=== PATIENT | male | born 1960 | race Caucasian/White ===

== ENCOUNTER 2018-04-12 11:52 | Inpatient (IN) ==
[2018-04-12] MEDS ORDERED: MethylPREDNISolone Sod Succinate Inj 125 MG/2 ML Vial IV.PUSH ONE (12:05)
[2018-04-12] MEDS ORDERED: Famotidine PF Inj 20 MG/2 ML Vial IV.PUSH ONE (12:05)
[2018-04-12] MEDS ORDERED: Sod Chloride 0.9% Inj 1,000 ML IV.SIG ONE (12:15)
[2018-04-12] MEDS ORDERED: Sod Chloride 0.9% Inj 1,000 ML IV.CONT SCH (12:15)
[2018-04-12 12:33] LABS: Mean Corpuscular HGB Conc 32.9 % (32.0-36.0); Mean Corpuscular Hemoglobin 35.7 pg (27.0-34.0); Mean Corpuscular Volume 108.6 fL (80.0-100.0); Mean Platelet Volume 7.2 fL (7.0-11.0); Platelet Count 46 th/mm3 (150-450); Red Blood Count 1.88 mil/mm3 (4.50-5.90); Red Cell Distribution Width 27.3 % (11.6-17.2); White Blood Count 5.8 th/mm3 (4.0-11.0)
[2018-04-12 12:34] LABS: ABG Base Excess -5.8 mmol/L (-2-2); ABG PCO2 31 mmHg (38-42); ABG PO2 70 mmHg (61-120)
[2018-04-12 12:41] LABS: Activated Partial Thrombo Time 31.6 sec (24.3-30.1); Prothrombin Time 10.2 sec (9.8-11.6)
[2018-04-12 12:44] LABS: Hematocrit 20.4 % (39.0-51.0); Hemoglobin 6.7 gm/dL (13.0-17.0)
[2018-04-12] MEDS ORDERED: Pantoprazole Inj 40 MG Vial IV.PUSH ONE (12:51)
[2018-04-12 13:00] LABS: Albumin 2.7 g/dL (3.4-5.0); Anion Gap 18 meq/L (5-15); Aspartate Aminotransferase 63 U/L (15-37); Blood Urea Nitrogen 27 mg/dL (7-18); Calcium 8.2 mg/dL (8.5-10.1); Carbon Dioxide 18.6 meq/L (21.0-32.0); Chloride 103 meq/L (98-107); Glomerular Filtration Rate 59 mL/min (>89); Glucose,Random 66 mg/dL (74-106); Potassium 4.8 meq/L (3.5-5.1); Sodium 140 meq/L (136-145)
[2018-04-12] MEDS ORDERED: Sodium Chlor 0.9% Inj 250 ML IV.SIG SCH (13:00)
--- NOTE | 2018-04-12 13:00 | XR ---
EXAM DATE: 04/12/2018 12:54 PM EDT AGE/SEX: 57 years / Male INDICATIONS: Short of breath and fever. Patient was receiving chemotherapy today and was transporte d to the emergency room with cold sweats. CLINICAL DATA: This is the patient's initial encounter. Patient reports that signs and symptoms have been present for 1 day and indicates a pain score of 0/10. MEDICAL/SURGICAL HISTORY: . Diabetes. Lymphoma. . Infusaport. COMPARISON: [facility] [place], 03[place]. . FINDINGS: There is a right-sided Vfrhie-l-Ymht in place which appears to be in good position. There is some mil d platelike atelectasis in the left lung base. No evidence of pneumothorax. Otherwise, the lungs are grossly clear. No definite pleural effusions or pulmonary edema is demonstrated. The heart size is wi thin normal limits. The bony structures appear to be stable. CONCLUSION: 1. New mild platelike atelectasis in the left lung base. 2. Otherwise, the rest the lungs are grossly clear. Electronically signed by: Grover Ventura MD 04/12/2018 12:58 PM EDT
[2018-04-12 13:03] LABS: Alanine Aminotransferase 14 U/L (12-78); Alkaline Phosphatase 136 U/L (45-117); Total Protein 5.5 g/dL (6.4-8.2)
--- NOTE | 2018-04-12 13:36 | ED ---
HPI General Chief complaint: Allergic Reaction Stated complaint: Medical/Evac Time Seen by Provider: 04/12/18 12:02 Source: patient, family and EMS Mode of arrival: EMS Limitations: no limitations History of Present Illness HPI narrative: 57 yo male here via [facility] for evaluation of allergic reaction. patient has a significant history of mantle cell lymphoma diagnosed 3 weeks ago at this hospital. Patient follow-up with Dr. Shell and has been following up with him for treatment of his cancer. Apparently patient had blood work done and an evaluation by his oncologist yesterday that showed that his hemoglobin was low. He was given a blood transfusion yesterday. Today he was due for the first dose of his chemotherapy rituximab transfusion and was given Benadryl and 30 minutes into the medication dose he started developing a reaction to the medication. He started becoming hypotensive and tachycardic as well as hypoxic. He started developing a rash. Apparently he also started complaining of a lot of itchiness. Dr. Shell himself evaluated the patient and the oncology center and started patient on prednisone as well as Benadryl. IV fluids were given. Patient was sent here by [facility] for evaluation of his allergic reaction. Patient currently complains of basically feeling short of breath. He does complain of itchiness and rash. He also complains of lower leg edema and testicular swelling. Patient cannot really tell me how long this is been going on. Patient denies any nausea or vomiting. He denies any bowel movement issues alert and having some darker stools. No urinary symptoms. He denies any history of asthma or COPD. He states that he is having difficulty taking deep breaths. Related Data Allergies Allergy/AdvReac Type Severity Reaction Status Date / Time indomethacin Allergy Unknown Verified 04/01/18 10:54 Review of Systems ROS Unobtainable All other systems reviewed negative except as stated in HPI [facility] Medical History Medical History Diabetes (Acute) Lymphoma (Acute) Social History Social History Substance History: Active Abuse Smoking Status: Current every day smoker Tobacco Type: Cigarettes How Often Do You Have a Drink Containing Alcohol: Monthly or less Recent Travel in [place] within the Last 8 Weeks: No Recent Out of Country Travel within the Last 8 Weeks: No Substance Abuse Detail Marijuana: Substance Use Status: Active Route Used Substance Abuse: Inhalation Immunization History Tetanus Immunization: Unsure Exam Narrative Exam Narrative: GENERAL: Well-groomed SKIN: Focused skin assessment warm/dry. Patient has icterus and jaundice noted on the skin as well as on the eyes. HEAD: Atraumatic. Normocephalic. EYES: Pupils equal and round. No scleral icterus. No injection or drainage. ENT: No nasal bleeding or discharge. Mucous membranes pink and moist. NECK: Trachea midline. No JVD. CARDIOVASCULAR: Regular rate and rhythm. No murmur appreciated. RESPIRATORY: No accessory muscle use. Clear to auscultation. Breath sounds equal bilaterally. GASTROINTESTINAL: Abdomen soft, non-tender, nondistended. Hepatic and splenic margins not palpable. Genital exam done with female nurse present. Patient does have soft tissue swelling of the testicles but no sign of pain or deformity other than soft tissue swelling. MUSCULOSKELETAL: No obvious deformities. No clubbing. No cyanosis. No edema. Full range of motion of the upper and lower extremities bilaterally. Patient does have lower leg edema which per patient is new. 1+ pitting edema. 2+ pulses bilaterally. NEUROLOGICAL: Awake and alert. No obvious cranial nerve deficits. Motor grossly within normal limits. Normal speech. PSYCHIATRIC: Appropriate mood and affect; insight and judgment normal. Procedures Hemaprompt Stool Procedural Steps Taken: specimen placed in appropriate test area, developer placed on specimen and control areas and controls appropriately positive and negative Hemaprompt Stool Result: negative Course Initial Documented Vital Signs Temperature 98.5 F 04/12/18 12:00 Pulse Rate 118 H 04/12/18 12:00 Respiratory Rate 28 H 04/12/18 12:00 Blood Pressure 109/56 L 04/12/18 12:00 Pulse Oximetry 91 L 04/12/18 12:00 Last Documented Vital Signs Temperature 98.5 F 04/12/18 12:00 Pulse Rate 118 H 04/12/18 12:00 Respiratory Rate 28 H 04/12/18 12:00 Blood Pressure 109/56 L 04/12/18 12:00 Pulse Oximetry 91 L 04/12/18 12:00 Medical Decision Making LITA Attestation LITA supervised visit: Yes Attestation: I, Dr. Garcia, have reviewed the advance practice practitioner's documentation and am in agreement, met with the patient face to face, made the diagnosis, and the medical decision making was done by me. *My assessment and Findings: Patient seen and evaluated with PA, please see PA notes for further details. Here because of increased shortness of breath, tachycardia, hypoxia, feeling weak. He has history of hematological cancer, has had recent transfusion, and has just been started on his new chemotherapy. Lab work is showing significant anemia which I suspect is causing much of his symptoms. Transfusion has been ordered for the patient. He has had dark stools but no signs of GI bleed at this time. Planning to admit for further treatment. MDM Narrative Medical decision making narrative: 57-year-old male the presents to the ED for evaluation of the reaction. Patient was properly examined and was found to have signs and symptoms consistent appears to be acute allergic reaction. Labs and imaging were ordered. Patient was slightly hypoxic and tachycardic on exam. Did review the patient's medical records and he was very anemic yesterday. Apparently he had transfusion yesterday. Will check his blood. He also complained of some dark stools. Hemoccult was done by me and was negative for blood. My attending Dr. Sy was made aware of findings and evaluated the patient herself. Patient was started on anaphylaxis medications as well as fluids. Patient was put on a nonrebreather with improvement of shortness of breath and oxygenation. I was able to speak with Dr. Shell over the phone who provided information the patient was given medications in his office before being sent here. Per Dr. Shell he wanted the patient admitted for further evaluation and stabilization. Per my conversation with him he believes that basically patient may be having more of a reaction because he was already week before having the first dose of the chemotherapy. Patient does appear to have significant anemia of unclear etiology. Hemoccult again was done here was negative. Blood was ordered. Case discussed with the [facility] doctor who agrees to admission to his service. Differential Diagnosis Differential Diagnosis: allergic reaction versus anaphylaxis versus symptomatic anemia versus GI bleed versus side effect of medication Medical Records Medical records reviewed: Yes I reviewed the patient's medical records. Lab Data Lab results reviewed: Yes I reviewed the patient's lab results. Lab results narrative: Coags show INR of 1.0. Result diagrams: 04/12/18 12:15 04/12/18 12:15 Lab Results 04/11/18 04/12/18 04/12/18 Range/Units 11:25 12:15 12:15 CBC w Diff Manual diff required WBC 5.8 (4.0-11.0) th/mm3 RBC 1.88 L (4.50-5.90) mil/mm3 Hgb 6.7 L* (13.0-17.0) gm/dL Hct 20.4 L* (39.0-51.0) % MCV 108.6 H (80.0-100.0) fL MCH 35.7 H (27.0-34.0) pg MCHC 32.9 (32.0-36.0) % RDW 27.3 H (11.6-17.2) % Plt Count 46 L D (150-450) th/mm3 MPV 7.2 (7.0-11.0) fL Prelim Diff (Auto) Slide review pending WBC Differential Manual diff final Seg Neuts % (Manual) 7 L (16-70) % Band Neuts % (Manual) 7 H (0-6) % Lymphocytes % (Manual) 85 H (9-44) % Eosinophils % (Manual) 1 (0-4) % Abs Neuts (Manual) 0.8 L (1.8-7.7) th/mm3 Nucleated RBCs/100 WBC 6 H (0-0) /100 WBC Differential Comment . Platelet Estimate Low L (Normal) Platelet Morphology Normal (Normal) Basophilic Stippling Faint H (None) PT (9.8-11.6) sec INR Ratio APTT (24.3-30.1) sec Puncture Site Patient Temperature O2 Saturation (90-100) % ABG pH (7.380-7.420) ABG pCO2 (38-42) mmHg ABG pO2 (61-120) mmHg ABG HCO3 (22-26) mmol/L ABG O2 Content (12.0-20.0) Vol % ABG Base Excess (-2-2) mmol/L ABG Methemoglobin (0-2) % Elias Test Hemoglobin (12.0-16.0) G/DL Carboxyhemoglobin (0-4) % O2 Delivery Device Liter Flow L/M Critical Value Sodium 140 (136-145) meq/L Potassium 4.8 (3.5-5.1) meq/L Chloride 103 (98-107) meq/L Carbon Dioxide 18.6 L (21.0-32.0) meq/L Anion Gap 18 H (5-15) meq/L BUN 27 H (7-18) mg/dL Creatinine 1.25 (0.60-1.30) mg/dL Estimated GFR 59 L (>89) mL/min Random Glucose 66 L (74-106) mg/dL Calcium 8.2 L (8.5-10.1) mg/dL Total Bilirubin 2.2 H (0.2-1.0) mg/dL AST 63 H (15-37) U/L ALT 14 (12-78) U/L Alkaline Phosphatase 136 H (45-117) U/L Total Protein 5.5 L (6.4-8.2) g/dL Albumin 2.7 L (3.4-5.0) g/dL MTS Gel Crossmatch See Detail 04/12/18 04/12/18 04/12/18 Range/Units 12:15 12:30 12:48 CBC w Diff WBC (4.0-11.0) th/mm3 RBC (4.50-5.90) mil/mm3 Hgb (13.0-17.0) gm/dL Hct (39.0-51.0) % MCV (80.0-100.0) fL MCH (27.0-34.0) pg MCHC (32.0-36.0) % RDW (11.6-17.2) % Plt Count (150-450) th/mm3 MPV (7.0-11.0) fL Prelim Diff (Auto) WBC Differential Seg Neuts % (Manual) (16-70) % Band Neuts % (Manual) (0-6) % Lymphocytes % (Manual) (9-44) % Eosinophils % (Manual) (0-4) % Abs Neuts (Manual) (1.8-7.7) th/mm3 Nucleated RBCs/100 WBC (0-0) /100 WBC Differential Comment Platelet Estimate (Normal) Platelet Morphology (Normal) Basophilic Stippling (None) PT 10.2 (9.8-11.6) sec INR 1.0 Ratio APTT 31.6 H (24.3-30.1) sec Puncture Site Left radial Patient Temperature 98.6 O2 Saturation 89 L* (90-100) % ABG pH 7.39 (7.380-7.420) ABG pCO2 31 L (38-42) mmHg ABG pO2 70 (61-120) mmHg ABG HCO3 18 L (22-26) mmol/L ABG O2 Content 8.6 L (12.0-20.0) Vol % ABG Base Excess -5.8 L (-2-2) mmol/L ABG Methemoglobin 0.8 (0-2) % Elias Test Y Hemoglobin 6.7 L* (12.0-16.0) G/DL Carboxyhemoglobin 3.9 (0-4) % O2 Delivery Device Nasal cannula Liter Flow 2.00 L/M Critical Value Yes Sodium (136-145) meq/L Potassium (3.5-5.1) meq/L Chloride (98-107) meq/L Carbon Dioxide (21.0-32.0) meq/L Anion Gap (5-15) meq/L BUN (7-18) mg/dL Creatinine (0.60-1.30) mg/dL Estimated GFR (>89) mL/min Random Glucose (74-106) mg/dL Calcium (8.5-10.1) mg/dL Total Bilirubin (0.2-1.0) mg/dL AST (15-37) U/L ALT (12-78) U/L Alkaline Phosphatase (45-117) U/L Total Protein (6.4-8.2) g/dL Albumin (3.4-5.0) g/dL MTS Gel Crossmatch See Detail Imaging Data Attestation: I personally reviewed and interpreted this imaging study as follows : Radiologist's impression: ITS Impressions Chest X-Ray 04/12/18 12:05 CONCLUSION: 1. New mild platelike atelectasis in the left lung base. 2. Otherwise, the rest the lungs are grossly clear. Discharge Plan Discharge Disposition Patient Disposition: 30 Still Patient Discharge Details Diagnosis: Adverse reaction to drug, Symptomatic anemia Physicians Team ED Provider: Sudha Garcia ED Midlevel Provider: Gagandeep Luna Primary Care Provider: UNKNOWN, Attending Provider: Rivas Eller Status ED Status: Admitted Patient
[2018-04-12 13:56] LABS: Eosinophils 1 % (0-4); Lymphocytes 85 % (9-44); Tallied Nucleated RBC 6 (0-0)
[2018-04-12 14:03] LABS: Platelet Morphology Normal (Normal)
--- NOTE | 2018-04-12 14:25 | P.HPIM ---
History of Present Illness Primary Care Physician: SOB/RASH History of Present Illness: Patient is 57 yo male recently admitted to [place] in March with fatique and leukocytosis of 40k. He underwent evaluation with CT imaging of chest/abdomen/pelvis, bone marrow bx , and axillary lymph node biopsy. He was seen by Dr Shell oncology. His w/up was consistent with Mantle cell lymphoma. He was discharged on 03/28. I am told he had blood transfusion yesterday for hgb 6 and today began his first dose of Rituximab. Pt says very soon after infusion he began with sob, lightheadedness, rash on upper back and chest. His blood pressure was low and given steroids in clinic. He was sent to ED for anaphylaxis and given iv solumedrol/ benadryl/pepcid. Hgb still 6 and blood ordered. Pt hypoxic and on nrb mask. Feels better and rash improving. Oncology called and admission requested. PMH: Mantle cell lymphoma hx dm before weight loss left elbow surgery port placement SH: occasional etoh tobacco x 25 yrs. max 2ppd now 10cig/day FH noncontributory Meds: lasix 20mg daily kcl 10meq daily lunesta 3mg daily norco 5 q6h prn prn phenergan and zofran - Diagnosis (1) Anaphylactic reaction (2) Mantle cell lymphoma Inpatient Certification: I certify that the inpatient services were ordered in accordance with Medicare regulations governing the order. This includes certification that hospital inpatient services are reasonable and necessary and in the case of services not specified as inpatient-only under 42 CFR 419.22(n), that they are appropriately provided as inpatient services in accordance to with the 2-midnight benchmark under 43 CFR 412.3(e) Estimated Total Length of Stay (Days): 3 Review of Systems sob rash difficulty swallowing food since diagnosis of mantle cell. PMFSH - History History Provided By: Patient - Medical History Medical History: Medical History (Last Reviewed 04/12/18 @ 13:35 by SMITH Duarte) Diabetes Lymphoma - Tobacco History Tobacco Use In Past 30 Days: Yes Smoking Status: Current every day smoker Tobacco Type: Cigarettes - Alcohol History How Often Do You Have a Drink Containing Alcohol: Monthly or less - Substance Use History Substance History: Active Abuse - Substance Use Type Marijuana Status: Active Route Used: Inhalation - Travel History [facility] in the [facility] Within the Last 8 Weeks: No Recent Travel Out of the Country Within the Last 8 Weeks: No - Immunization History Tetanus Immunization: Unsure Medications and Allergies Active Medications: Active Medications Allergies Allergy/AdvReac Type Severity Reaction Status Date / Time indomethacin Allergy Unknown Verified 04/01/18 10:54 Exam Vital signs: Vital Signs 04/12/18 12:00 Temperature 98.5 F Pulse Rate 118 H Respiratory Rate 28 H Blood Pressure 109/56 L Pulse Oximetry 91 L Intake & Output 04/11/18 04/12/18 04/12/18 18:59 06:59 18:59 Weight 92.986 kg no stridor oriented no labored breathing heart reg lung cta/no wheeze abd s/nt ext trace edema petechial rash around neck/chest Results - Labs CBC & Chem 7: 04/12/18 12:15 04/12/18 12:15 Labs: Short CBC 04/12/18 Range/Units 12:15 WBC 5.8 (4.0-11.0) th/mm3 Hgb 6.7 L* (13.0-17.0) gm/dL Hct 20.4 L* (39.0-51.0) % Plt Count 46 L D (150-450) th/mm3 BMP 04/12/18 12:15 Sodium 140 Potassium 4.8 Chloride 103 Carbon Dioxide 18.6 L BUN 27 H Creatinine 1.25 Calcium 8.2 L Liver Function 04/12/18 Range/Units 12:15 Total Bilirubin 2.2 H (0.2-1.0) mg/dL AST 63 H (15-37) U/L ALT 14 (12-78) U/L Alkaline Phosphatase 136 H (45-117) U/L Albumin 2.7 L (3.4-5.0) g/dL - Imaging Impressions Chest X-Ray 04/12/18 12:05 CONCLUSION: 1. New mild platelike atelectasis in the left lung base. 2. Otherwise, the rest the lungs are grossly clear. Caprini VTE Risk Assessment Caprini VTE Risk Assessment: Moderate/High Risk (score >= 2) Caprini Risk Assessment Model: Point Value = 1 Point Value = 2 Point Value = 3 Point Value = 5 Age 41-60 Minor surgery BMI > 25 kg/m2 Swollen legs Varicose veins or History of unexplained or recurrent spontaneous Oral contraceptives or hormone replacement Sepsis (< 1 month) Serious lung disease, including pneumonia (< 1 month) Abnormal pulmonary function Acute myocardial infarction Congestive heart failure (< 1 month) History of inflammatory bowel disease Medical patient at bed rest Age 61-74 Arthroscopic surgery Major open surgery (> 45 min) Laparoscopic surgery (> 45 min) Malignancy Confined to bed (> 72 hours) Immobilizing plaster cast Central venous access Age >= 75 History of VTE Family history of VTE Factor V Leiden Prothrombin [id number] Lupus anticoagulant Anticardiolipin antibodies Elevated serum homocysteine Heparin-induced thrombocytopenia Other congenital or acquired thrombophilia Stroke (< 1 month) Elective arthroplasty Hip, pelvis, or leg fracture Acute spinal cord injury (< 1 month) Prophylaxis Regimen: Total Risk Factor Score Risk Level Prophylaxis Regimen 0-1 Low Early ambulation 2 Moderate Order ONE of the following: *Sequential Compression Device (SCD) *Heparin 5000 units SQ BID 3-4 Higher Order ONE of the following medications: *Heparin 5000 units SQ TID *Enoxaparin/Lovenox 40 mg SQ daily (WT < 150 kg, CrCl > 30 mL/min) *Enoxaparin/Lovenox 30 mg SQ daily (WT < 150 kg, CrCl > 10-29 mL/min) *Enoxaparin/Lovenox 30 mg SQ BID (WT < 150 kg, CrCl > 30 mL/min) AND/OR *Sequential Compression Device (SCD) 5 or more Highest Order ONE of the following medications: *Heparin 5000 units SQ TID (Preferred with Epidurals) *Enoxaparin/Lovenox 40 mg SQ daily (WT < 150 kg, CrCl > 30 mL/min) *Enoxaparin/Lovenox 30 mg SQ daily (WT < 150 kg, CrCl > 10-29 mL/min) *Enoxaparin/Lovenox 30 mg SQ BID (WT < 150 kg, CrCl > 30 mL/min) AND *Sequential Compression Device (SCD) Assessment and Plan - Assessment (1) Anaphylactic reaction Code(s): T78.2XXA - Anaphylactic shock, unspecified, initial encounter Plan: 1. Mantle cell lymphoma. 03/23 CT abdomen/pelvis: 1. Markedly splenomegaly. 2. Prominent abdominal adenopathy including prominent groin adenopathy greater on the right. 3. Low-density lesion in the liver is nonspecific and measures 2.5 cm. 03/23 CT chest 1. Prominent axillary and mediastinal adenopathy. Lymphoma/leukemia should be excluded. 2. No infiltrate or mass. 03/24. Bone marrow biopsy 03/25 Left axillary node biopsy with u/s 04/01 IR.....1.implanted central venous port catheter placement. An 8 [place] Power port was placed. 2. anaphylaxis to Rituximab - Pt sent to ED today for anaphylaxis to Rituximab. Rash on back/neck, sob/hypoxia, hypotension. Improving with steroids/benadryl continue solumedrol and benadryl overnight. telemetry prn nebs consulted Dr Shell to decide on future therapy and management 3. Anemia/thrombocytopenia -Severe anemia related to mantle cell - will transfuse 2 units of prbc today consult PT consult ST. pt describing dysphagia to certain foods dvt prophylaxis. (2) Mantle cell lymphoma Code(s): C83.10 - Mantle cell lymphoma, unspecified site Status: Acute
--- NOTE | 2018-04-12 15:18 | US ---
EXAM DATE: 04/12/2018 2:46 PM EDT AGE/SEX: 57 years / Male INDICATIONS: Bilateral leg swelling. CLINICAL DATA: This is the patient's initial encounter. Patient reports that signs and symptoms have been present for 4 - 6 days and indicates a pain score of 1/10. MEDICAL/SURGICAL HISTORY: Hypertension. Diabetes. . Right shoulder surgery. Left elbow surgery . COMPARISON: [facility] [place] GUIDED LYMPH NODE gas, , 03/25/2018. . TECHNIQUE: Venous ultrasound of both lower extremities was performed from the inguinal ligament to t he proximal calf. Real-time, color Doppler and spectral tracing, compression and augmentation techni ques were used. FINDINGS: Right Leg: Normal compression of the deep venous system from the inguinal region to the proximal lia f. No echogenic clot is seen. Normal response of the venous system to augmentation and respiration. Left Leg: Normal compression of the deep venous system from the inguinal region to the proximal calf . No echogenic clot is seen. Normal response of the venous system to augmentation and respiration. Other: None. CONCLUSION: No evidence of deep venous thrombosis. Electronically signed by: Medardo Restrepo MD 04/12/2018 3:17 PM EDT
--- NOTE | 2018-04-12 15:21 | US ---
EXAM DATE: 04/12/2018 2:57 PM EDT AGE/SEX: 57 years / Male INDICATIONS: Enlarged testicles. CLINICAL DATA: This is the patient's initial encounter. Patient reports that signs and symptoms have been present for 2 weeks and indicates a pain score of 2/10. MEDICAL/SURGICAL HISTORY: . Hypertension. Diabetes. . Right shoulder surgery. Left elbow surge ry. COMPARISON: [facility] [place] VENOUS DOPPLER LEG BI, 04/12/2018. . MEASUREMENTS: Right Testicle:__4.0 x 3.8 x 2.4 cm Left Testicle:__4.2 x 3.0 x 2.2 cm FINDINGS: Ultrasound examination of the testicles demonstrates normal size bilaterally. There is normal Doppler flow bilaterally. There is no evidence of hydrocele. No intratesticular masses are identified. A 7 mm epididymal cyst is present on the right. There is mild diffuse enlargement of the epididymal head on the left. Diffuse scrotal edema is present. CONCLUSION: Diffuse scrotal edema with small left hydrocele. Normal testicular flow without mass Electronically signed by: Medardo Restrepo MD 04/12/2018 3:20 PM EDT
[2018-04-12] MEDS: Acetaminophen 325 MG Tablet PO PRN ×2 (16:35→21:07)
[2018-04-12] MEDS: MethylPREDNISolone Sod Succinate Inj 125 MG/2 ML Vial IV.PUSH SCH (17:09)
--- NOTE | 2018-04-12 17:41 | ECG ---
Date Performed: 04/12/2018 Time Performed: 12:14:51 PTAGE: 57 years EKG: SINUS TACHYCARDIA LOW QRS VOLTAGE IN PRECORDIAL LEADS NONSPECIFIC T-WAVE ABNORMALITY ABNORM AL RHYTHM ECG No significant change from prior electrocardiogram. PREVIOUS TRACING : 04/12/2018 11.11 DOCTOR: Shaw Hampton Interpretating Date/Time 04/12/2018 17:40:19
--- NOTE | 2018-04-12 18:43 | MB ---
cc: Gabino Shell MD, Boon Y MD DATE: 04/12/2018 ATTENDING PHYSICIAN: Dr. Eller REASON FOR CONSULTATION: Oncology was consulted to render an opinion regarding a patient with a reaction to Rituxan. HISTORY OF PRESENT ILLNESS: The patient is a very pleasant 57-year-old male recently diagnosed with a mantle cell lymphoma with leukemic phase. He presented to the hospital the end of February with constitutional symptoms. He was found to have a white blood cell count of 40,000. He also noted diffuse adenopathy. Workup showed mantle cell lymphoma. He was given first cycle of bendamustine April 04 and . Today he came to the office for the Rituxan. Yesterday, he was given a blood transfusion because of significant anemia. About an hour into a Rituxan, he developed tachycardia, hypotension, and became hypoxic. He also developed rigors. He was given hydrocortisone and Demerol. He was slow to recover from the side effect. He was brought into the emergency room. When I saw him this evening, he is feeling a little better. He still has generalized weakness and fatigue. Denies any fever or chills. Denies any chest pain. The shortness of breath has improved with oxygen. Denies any nausea, vomiting, diarrhea or abdominal pain. He still has mild ache on his back. Still complain of lower extremity edema and scrotal edema. PAST MEDICAL HISTORY: 1. Mantle cell lymphoma with leukemic phase. 2. Diabetes mellitus 3. Kidney stone. 4. Hyperuricemia. PAST SURGICAL HISTORY: Left elbow surgery, port placement and right shoulder surgery, colonoscopy, bone marrow biopsy and a biopsy of the left axillary lymph node. FAMILY HISTORY: Two daughters, both healthy. SOCIAL HISTORY: Smoked a pack a day for 30 years, has decreased smoking, drinks occasionally. ALLERGIES: INDOMETHACIN. CURRENT MEDICATIONS: 1. Benadryl 2. Solu-Medrol. OUTPATIENT MEDICATIONS: 1. Lasix. 2. Potassium 3. Allopurinol. REVIEW OF SYSTEMS: CONSTITUTIONAL: Generalized weakness, fatigue as above. EYES: Negative. ENT: Negative. CARDIOVASCULAR: As above. RESPIRATORY: As above. GASTROINTESTINAL: Denies any nausea, vomiting, diarrhea or abdominal pain. GENITOURINARY: As above. MUSCULOSKELETAL: Negative. ENDOCRINE: Negative. HEMATOLOGIC: As above. PSYCHIATRIC: Has anxiety. DERMATOLOGY: As above. NEUROLOGIC: Negative. PHYSICAL EXAMINATION: VITAL SIGNS: Temperature 98.8, blood pressure 105/55, O2 saturation 98% on 2 liters nasal cannula. GENERAL: He is alert and oriented x3, no acute distress. HEENT: Atraumatic, normocephalic. Pupils are equal, round, reactive to light. Extraocular muscles are intact. No scleral icterus. Oropharynx dry mucosa. No lesion, no thrush. No mucositis. NECK: No thyromegaly. No palpable mass. LYMPHATIC: No palpable cervical or clavicular lymph nodes. He has bilateral axillary lymph nodes, more prominent on the left side, but overall decreased in size. CARDIOVASCULAR: Regular S1, S2. No murmur. LUNGS: Mild bibasilar crackles. No wheezing, rhonchi. ABDOMEN: Soft, nontender. I could not palpate liver or spleen: No cyanosis, clubbing. There is 1+ lower extremity edema GENITOURINARY: He has scrotal edema. BACK: No paravertebral tenderness. SKIN: No significant rash or petechiae. NEUROLOGIC: Nonfocal. LABORATORY DATA: WBC 5.8, hemoglobin 6.7, platelet count 46, absolute neutrophil count 0.8. Creatinine 1.25, AST 63, alkaline phosphatase 136. ASSESSMENT: 1. Adverse reaction to Rituxan. He developed tachycardia, tachypnea, rigors, hypertension and hypoxia about an hour into the Rituxan infusion. He was given hydrocortisone and Demerol and his symptoms subsided. Since admitted to the hospital, he was started on Solu-Medrol. He still has mild itch on his back, but hemodynamically he is more stable. We will continue him on Benadryl and Solu-Medrol for now. 2. Mantle cell lymphoma with leukemic phase. He presented with constitutional symptom and noted to have diffuse adenopathy as he presented with white blood cell count more than 40,000. A bone marrow biopsy, and biopsy of left axillary lymph node showed mantle cell lymphoma. Peripheral smear showed scattered large cell, but that was not seen in the lymph node biopsy or bone marrow. He completed first cycle of bendamustine last week. He was given Rituxan today, but developed adverse reaction as above. I plan to rechallenge him with Rituxan in another day or two, but will do that in the hospital given his significant reaction to the drug today. We will continue him on steroids. Hopefully, he is able to tolerate Rituxan. I told the patient and family that Rituxan is a very effective drug for lymphoma and we will rechallenge him with Rituxan. Hopefully, he is able to tolerate it. 3. Pancytopenia. His white blood cell count has now trended to 5.8, but the peripheral smear still shows predominantly lymphocytes, which are likely due to mantle cell lymphoma. His absolute neutrophil count was only 800. He was started on neutropenic precaution. 4. His hemoglobin is back down to 6.7. No obvious bleeding noted. He will be getting a transfusion. His platelet count also trended down to 46, but no obvious bleeding noted. 5. Edema. He developed lower extremity edema and scrotal edema. His recent echocardiogram showed ejection fraction of 55%. We will continue him on diuretic. 6. Constitutional symptoms of new mantle cell lymphoma. 7. Hyperuricemia. He likely has a mild tumor lysis syndrome. Continue him on allopurinol. 8. Mild renal insufficiency. His kidney function is improved. 9. Diabetes mellitus. 10. Kidney stone. PLAN: 1. Extensive discussion with the patient and his family. 2. Continue Solu-Medrol and Benadryl. 3. Continue allopurinol. 4. Plan to rechallenge him with Rituxan when he is more stable in a day or two. 2. Monitor CBC. Thank you, Dr. Eller, for asking me to see this patient. MD RHONDA Borrego/ , 06:03 PM , 06:42 PM KASHIF
[2018-04-13] MEDS: MethylPREDNISolone Sod Succinate Inj 125 MG/2 ML Vial IV.PUSH SCH ×5 (00:56→23:24)
[2018-04-13 05:19] LABS: Hematocrit 24.7 % (39.0-51.0); Hemoglobin 8.2 gm/dL (13.0-17.0); Mean Corpuscular HGB Conc 33.2 % (32.0-36.0); Mean Corpuscular Hemoglobin 32.8 pg (27.0-34.0); Mean Corpuscular Volume 98.9 fL (80.0-100.0); Platelet Count 54 th/mm3 (150-450); Red Cell Distribution Width 24.3 % (11.6-17.2); White Blood Count 7.7 th/mm3 (4.0-11.0)
[2018-04-13 05:51] LABS: Calcium 8.2 mg/dL (8.5-10.1); Carbon Dioxide 24.8 meq/L (21.0-32.0); Potassium 4.9 meq/L (3.5-5.1)
[2018-04-13] MEDS ORDERED: Heparin Central Flush 100 UNIT/ML 5 ML Vial IV.FLUSH PRN (06:11)
[2018-04-13 07:57] LABS: Blast Cells 1 % (0-0); Lymphocytes 82 % (9-44); Monocytes 3 % (0-8); Platelet Morphology Normal (Normal); Tallied Nucleated RBC 4 (0-0)
[2018-04-13 07:58] LABS: Pappenheimer Bodies Present
--- NOTE | 2018-04-13 08:21 | P.PNIM ---
Subjective Interval history: c/o persistent scrotal edema x 2 weeks. nasal gtt and cough Physical Exam Vital signs: Vital Signs 04/12/18 12:00 04/12/18 12:15 04/12/18 12:30 Temperature 98.5 F Pulse Rate 118 H 120 H 116 H Respiratory Rate 29 H 28 H 24 Blood Pressure 109/56 L 117/58 L 112/56 L Pulse Oximetry 92 L 94 L 100 04/12/18 12:45 04/12/18 13:00 04/12/18 13:15 Temperature Pulse Rate 116 H 118 H 112 H Respiratory Rate 27 H 30 H 24 Blood Pressure 112/55 L 108/54 L 113/59 L Pulse Oximetry 100 100 100 04/12/18 14:00 04/12/18 15:27 04/12/18 16:23 Temperature 98.4 F Pulse Rate 112 H 108 H 109 H Respiratory Rate 25 H 20 Blood Pressure 108/56 L 99/57 L Pulse Oximetry 100 100 04/12/18 17:14 04/12/18 17:30 04/12/18 19:59 Temperature 98.3 F 98.8 F 98.7 F Pulse Rate 108 H 102 H 103 H Respiratory Rate 20 20 18 Blood Pressure 102/55 L 105/55 L 113/67 Pulse Oximetry 98 98 97 04/12/18 20:00 04/12/18 20:08 04/12/18 21:21 Temperature 98.3 F Pulse Rate 106 H 102 H Respiratory Rate 18 Blood Pressure 124/79 Pulse Oximetry 94 L 96 04/12/18 21:52 04/12/18 22:37 04/13/18 00:00 Temperature 99.2 F 98.7 F Pulse Rate 96 H Respiratory Rate 18 18 Blood Pressure 119/70 Pulse Oximetry 96 04/13/18 00:50 04/13/18 01:36 04/13/18 04:03 Temperature 98.3 F Pulse Rate 87 90 83 Respiratory Rate 20 Blood Pressure 114/65 Pulse Oximetry 94 L 04/13/18 04:35 04/13/18 07:47 Temperature 97.7 F Pulse Rate 84 89 Respiratory Rate 18 Blood Pressure 121/72 Pulse Oximetry 93 L Intake & Output 04/12/18 04/13/18 04/13/18 18:59 06:59 18:59 Intake Total 0 / 0 1365 / 1365 Output Total 750 / 750 Balance 0 / 0 615 / 615 Weight 92.986 kg 98 kg Intake: Oral 480 / 480 Other 85 / 85 Rbc As-3 Leukoreduced Unit 40 / 40 [id number] Rbc As-3 Leukoreduced Unit 45 / 45 [id number] Intake (Blood Product) Amt 0 / 0 800 / 800 Rbc As-3 Leukoreduced Unit 400 / 400 [id number] Rbc As-3 Leukoreduced Unit 0 / 0 400 / 400 [id number] Output: Urine 750 / 750 Other: # Voids 4 Date of Last Bowel Movement 04/12/18 04/12/18 # Bowel Movements 1 heent neg heart reg lung few scattered upper airway wheeze abds/nt ext minimal edema lower ext scrotal edema Results - Labs CBC & Chem 7: 04/13/18 04:40 04/13/18 04:40 Laboratory Results - last 24 hr 04/11/18 04/12/18 04/12/18 11:25 12:15 12:15 CBC w Diff Manual diff required WBC 5.8 RBC 1.88 L Hgb 6.7 L* Hct 20.4 L* MCV 108.6 H MCH 35.7 H MCHC 32.9 RDW 27.3 H Plt Count 46 L D MPV 7.2 Prelim Diff (Auto) Slide review pending WBC Differential Manual diff final Seg Neuts % (Manual) 7 L Band Neuts % (Manual) 7 H Lymphocytes % (Manual) 85 H Monocytes % (Manual) Eosinophils % (Manual) 1 Blast Cells % (Manual) Abs Neuts (Manual) 0.8 L Nucleated RBCs/100 WBC 6 H Differential Comment . Platelet Estimate Low L Platelet Morphology Normal Basophilic Stippling Faint H Pappenheimer Bodies PT INR APTT Puncture Site Patient Temperature O2 Saturation ABG pH ABG pCO2 ABG pO2 ABG HCO3 ABG O2 Content ABG Base Excess ABG Methemoglobin Elias Test Hemoglobin Carboxyhemoglobin O2 Delivery Device Liter Flow Inspired O2 Critical Value Sodium 140 Potassium 4.8 Chloride 103 Carbon Dioxide 18.6 L Anion Gap 18 H BUN 27 H Creatinine 1.25 Estimated GFR 59 L Random Glucose 66 L Calcium 8.2 L Total Bilirubin 2.2 H AST 63 H ALT 14 Alkaline Phosphatase 136 H Total Protein 5.5 L Albumin 2.7 L MTS Gel Crossmatch See Detail 0704/12/18 04/12/18 12:15 12:30 12:48 CBC w Diff WBC RBC Hgb Hct MCV MCH MCHC RDW Plt Count MPV Prelim Diff (Auto) WBC Differential Seg Neuts % (Manual) Band Neuts % (Manual) Lymphocytes % (Manual) Monocytes % (Manual) Eosinophils % (Manual) Blast Cells % (Manual) Abs Neuts (Manual) Nucleated RBCs/100 WBC Differential Comment Platelet Estimate Platelet Morphology Basophilic Stippling Pappenheimer Bodies PT 10.2 INR 1.0 APTT 31.6 H Puncture Site Left radial Patient Temperature 98.6 O2 Saturation 89 L* ABG pH 7.39 ABG pCO2 31 L ABG pO2 70 ABG HCO3 18 L ABG O2 Content 8.6 L ABG Base Excess -5.8 L ABG Methemoglobin 0.8 Elias Test Y Hemoglobin 6.7 L* Carboxyhemoglobin 3.9 O2 Delivery Device Nasal cannula Liter Flow 2.00 Inspired O2 Not Reportable Critical Value Yes Sodium Potassium Chloride Carbon Dioxide Anion Gap BUN Creatinine Estimated GFR Random Glucose Calcium Total Bilirubin AST ALT Alkaline Phosphatase Total Protein Albumin MTS Gel Crossmatch See Detail 04/13/18 04/13/18 04:40 04:40 CBC w Diff WBC 7.7 RBC 2.50 L Hgb 8.2 L Hct 24.7 L MCV 98.9 D MCH 32.8 MCHC 33.2 RDW 24.3 H D Plt Count 54 L MPV 7.0 Prelim Diff (Auto) Slide review pending WBC Differential Manual diff final Seg Neuts % (Manual) 12 L Band Neuts % (Manual) 2 Lymphocytes % (Manual) 82 H Monocytes % (Manual) 3 Eosinophils % (Manual) Blast Cells % (Manual) 1 H Abs Neuts (Manual) 1.1 L Nucleated RBCs/100 WBC 4 H Differential Comment . Platelet Estimate Low L Platelet Morphology Normal Basophilic Stippling Pappenheimer Bodies Present H PT INR APTT Puncture Site Patient Temperature O2 Saturation ABG pH ABG pCO2 ABG pO2 ABG HCO3 ABG O2 Content ABG Base Excess ABG Methemoglobin Elias Test Hemoglobin Carboxyhemoglobin O2 Delivery Device Liter Flow Inspired O2 Critical Value Sodium 140 Potassium 4.9 Chloride 104 Carbon Dioxide 24.8 Anion Gap 11 BUN 31 H Creatinine 1.17 Estimated GFR 64 L Random Glucose 180 H D Calcium 8.2 L Total Bilirubin AST ALT Alkaline Phosphatase Total Protein Albumin MTS Gel Crossmatch - Imaging Impressions Chest X-Ray 04/12/18 12:05 CONCLUSION: 1. New mild platelike atelectasis in the left lung base. 2. Otherwise, the rest the lungs are grossly clear. Scrotum Ultrasound 04/12/18 13:01 CONCLUSION: Diffuse scrotal edema with small left hydrocele. Normal testicular flow without mass Venous Doppler Study 04/12/18 13:02 CONCLUSION: No evidence of deep venous thrombosis. Assessment and Plan - Assessment (1) Anaphylactic reaction Code(s): T78.2XXA - Anaphylactic shock, unspecified, initial encounter Plan: 1. Mantle cell lymphoma. 03/23 CT abdomen/pelvis: 1. Markedly splenomegaly. 2. Prominent abdominal adenopathy including prominent groin adenopathy greater on the right. 3. Low-density lesion in the liver is nonspecific and measures 2.5 cm. 03/23 CT chest 1. Prominent axillary and mediastinal adenopathy. Lymphoma/leukemia should be excluded. 2. No infiltrate or mass. 03/24. Bone marrow biopsy 03/25 Left axillary node biopsy with u/s 04/01 IR.....1.implanted central venous port catheter placement. An 8 [place] port was placed. oncology plans to rechallenge him with rituxamab on this admission resume his diuretic for lower ext/scrotal edema. elevate scrotum. low albumen noted 2. anaphylaxis to Rituximab - Pt sent to ED today for anaphylaxis to Rituximab. Rash on back/neck, sob/hypoxia, hypotension. Improving with steroids/benadryl continue solumedrol and benadryl telemetry nebs 3. Anemia/thrombocytopenia -Severe anemia related to mantle cell - s/p 2 units of prbc 04/[address] pt describing dysphagia to certain foods dvt prophylaxis. (2) Mantle cell lymphoma Code(s): C83.10 - Mantle cell lymphoma, unspecified site Status: Acute
[2018-04-13 11:52] LABS: Uric Acid 6.2 mg/dl (2.6-7.2)
[2018-04-13] MEDS: Furosemide 20 MG Tablet PO SCH ×2 (11:55→17:04)
[2018-04-13] MEDS ORDERED: Dextrose 50% in Water 50 ML Vial IV.PUSH PRN (13:21)
[2018-04-13] MEDS ORDERED: Furosemide 20 MG Tablet PO SCH (15:00)
[2018-04-13] MEDS: Insulin NovoLOG Aspart Correctional Sugar Inj SQ SCH ×2 (17:04→20:21)
--- NOTE | 2018-04-13 17:06 | P.PNONC ---
Subjective Interval history: Patient is feeling better today after blood transfusion. He still has shortness of breath. He denies any chest pain. He has persistent scrotal edema and lower extremity edema. The rash has resolved. Objective Vital Signs/Intake & Output: Vital Signs 04/12/18 17:14 04/12/18 17:30 04/12/18 19:59 Temperature 98.3 F 98.8 F 98.7 F Pulse Rate 108 H 102 H 103 H Respiratory Rate 20 20 18 Blood Pressure 102/55 L 105/55 L 113/67 Pulse Oximetry 98 98 97 04/12/18 20:00 04/12/18 20:08 04/12/18 21:21 Temperature 98.3 F Pulse Rate 106 H 102 H Respiratory Rate 18 Blood Pressure 124/79 Pulse Oximetry 94 L 96 04/12/18 21:52 04/12/18 22:37 04/13/18 00:00 Temperature 99.2 F 98.7 F Pulse Rate 96 H Respiratory Rate 18 18 Blood Pressure 119/70 Pulse Oximetry 96 04/13/18 00:50 04/13/18 01:36 04/13/18 04:03 Temperature 98.3 F Pulse Rate 87 90 83 Respiratory Rate 20 Blood Pressure 114/65 Pulse Oximetry 94 L 04/13/18 04:35 04/13/18 07:47 04/13/18 09:43 Temperature 97.7 F 97.7 F Pulse Rate 84 89 95 H Respiratory Rate 18 22 Blood Pressure 121/72 123/77 Pulse Oximetry 93 L 99 04/13/18 09:56 04/13/18 09:57 04/13/18 11:34 Temperature 98.6 F Pulse Rate 95 H 95 H Respiratory Rate 18 20 Blood Pressure 120/70 Pulse Oximetry 97 98 04/13/18 11:38 04/13/18 12:00 04/13/18 15:20 Temperature Pulse Rate 98 H 96 H Respiratory Rate 16 Blood Pressure Pulse Oximetry 96 04/13/18 15:21 04/13/18 16:00 Temperature 98.1 F Pulse Rate 96 H Respiratory Rate 20 Blood Pressure 114/68 Pulse Oximetry 97 96 Intake & Output 04/12/18 04/13/18 04/13/18 18:59 06:59 18:59 Intake Total 0 / 0 1365 / 1365 1300 / 1300 Output Total 750 / 750 1350 / 1350 Balance 0 / 0 615 / 615 -50 / -50 Weight 92.986 kg 98 kg Intake: Oral 480 / 480 1300 / 1300 Other 85 / 85 Rbc As-3 Leukoreduced Unit 40 / 40 [id number] Rbc As-3 Leukoreduced Unit 45 / 45 [id number] Intake (Blood Product) Amt 0 / 0 800 / 800 Rbc As-3 Leukoreduced Unit 400 / 400 [id number] Rbc As-3 Leukoreduced Unit 0 / 0 400 / 400 [id number] Output: Urine 750 / 750 1350 / 1350 Other: # Voids 4 Date of Last Bowel Movement 04/12/18 04/12/18 04/13/18 # Bowel Movements 1 Result Diagrams: 04/13/18 04:40 04/13/18 04:40 Laboratory Results: Laboratory Results - last 24 hr 04/11/18 04/12/18 04/13/18 11:25 12:48 04:40 WBC 7.7 RBC 2.50 L Hgb 8.2 L Hct 24.7 L MCV 98.9 D MCH 32.8 MCHC 33.2 RDW 24.3 H D Plt Count 54 L MPV 7.0 Prelim Diff (Auto) Slide review pending WBC Differential Manual diff final Seg Neuts % (Manual) 12 L Band Neuts % (Manual) 2 Lymphocytes % (Manual) 82 H Monocytes % (Manual) 3 Blast Cells % (Manual) 1 H Abs Neuts (Manual) 1.1 L Nucleated RBCs/100 WBC 4 H Differential Comment . Platelet Estimate Low L Platelet Morphology Normal Pappenheimer Bodies Present H Sodium Potassium Chloride Carbon Dioxide Anion Gap BUN Creatinine Estimated GFR POC Glucose Random Glucose Uric Acid Calcium Lactate Dehydrogenase MTS Gel Crossmatch See Detail See Detail 04/13/18 04/13/18 04/13/18 04:40 04:40 12:31 WBC RBC Hgb Hct MCV MCH MCHC RDW Plt Count MPV Prelim Diff (Auto) WBC Differential Seg Neuts % (Manual) Band Neuts % (Manual) Lymphocytes % (Manual) Monocytes % (Manual) Blast Cells % (Manual) Abs Neuts (Manual) Nucleated RBCs/100 WBC Differential Comment Platelet Estimate Platelet Morphology Pappenheimer Bodies Sodium 140 Potassium 4.9 Chloride 104 Carbon Dioxide 24.8 Anion Gap 11 BUN 31 H Creatinine 1.17 Estimated GFR 64 L POC Glucose 271 H Random Glucose 180 H D Uric Acid 6.2 Calcium 8.2 L Lactate Dehydrogenase 334 H MTS Gel Crossmatch 04/13/18 16:54 WBC RBC Hgb Hct MCV MCH MCHC RDW Plt Count MPV Prelim Diff (Auto) WBC Differential Seg Neuts % (Manual) Band Neuts % (Manual) Lymphocytes % (Manual) Monocytes % (Manual) Blast Cells % (Manual) Abs Neuts (Manual) Nucleated RBCs/100 WBC Differential Comment Platelet Estimate Platelet Morphology Pappenheimer Bodies Sodium Potassium Chloride Carbon Dioxide Anion Gap BUN Creatinine Estimated GFR POC Glucose 331 H Random Glucose Uric Acid Calcium Lactate Dehydrogenase MTS Gel Crossmatch Medications: Active Medications Generic Name Dose Route Start Last Admin Trade Name Freq PRN Reason Stop Dose Admin Acetaminophen 650 mg 04/12/18 16:29 04/12/18 21:07 Tylenol PO 650 mg Q4H PRN Administration PRIOR TO BLOOD TRANSFUSIONS Albuterol 1 ampul 04/13/18 09:00 04/13/18 15:19 Duoneb Neb (Jennifer) NEB 1 ampul Q6HR ALT NEB JENNIFER Administration Diphenhydramine HCl 25 mg 04/12/18 18:00 04/13/18 11:54 Benadryl PO Not Given Q6H JENNIFER Diphenhydramine HCl 25 mg 04/12/18 14:17 04/12/18 21:08 Benadryl PO 25 mg Q4H PRN Administration rash/itch Diphenhydramine HCl 25 mg 04/12/18 16:29 04/12/18 16:35 Benadryl PO 25 mg Q4H PRN Administration PRIOR TO BLOOD TRANSFUSIONS Eszopiclone 3 mg 04/12/18 21:00 04/12/18 22:42 Lunesta PO 3 mg HS PRN Administration insomnia Fluticasone Propionate 2 spray 04/13/18 09:00 04/13/18 16:52 Flonase Nasal [facility] NASAL Not Given DAILY JENNIFER Furosemide 20 mg 04/13/18 09:00 04/13/18 11:55 Lasix PO Not Given BID@0900,1800 JENNIFER Methylprednisolone Sodium Succinate 60 mg 04/12/18 18:00 04/13/18 11:48 Solumedrol Inj IV.PUSH 60 mg Q6HR JENNIFER Administration Sodium Chloride 2 ml 04/12/18 12:05 04/13/18 00:56 Ns Flush IV.FLUSH 2 ml PRN PRN Administration FLUSH AFTER USING IV ACCESS Objective Remarks: GENERAL: Well-nourished, well-developed patient. SKIN: Warm and dry. HEAD: Normocephalic. EYES: No scleral icterus. No injection or drainage. NECK: Supple, trachea midline. No JVD or lymphadenopathy. LYMPHATIC: No adenopathy. CARDIOVASCULAR: Regular rate and rhythm without murmurs. RESPIRATORY: Breath sounds equal bilaterally. No accessory muscle use. Mild tachypnea. GASTROINTESTINAL: Abdomen soft, non-tender, nondistended. EXTREMITIES: No cyanosis, 2+ BLE edema. MUSCULOSKELETAL: Adequate muscle tone. NEUROLOGICAL: No obvious focal deficit. Awake, alert, and oriented x3. PSYCHIATRIC: Appropriate mood and affect; insight and judgment normal. Assessment/Plan (1) Adverse reaction to drug Code(s): T50.905A - Adverse effect of unspecified drugs, medicaments and biological substances, initial encounter Status: Acute (2) Symptomatic anemia Code(s): D64.9 - Anemia, unspecified Status: Acute (3) Mantle cell lymphoma Code(s): C83.10 - Mantle cell lymphoma, unspecified site Status: Acute - Plan Assessment: 1. Adverse reaction to Rituxan. He developed tachycardia, tachypnea, rigors, hypertension and hypoxia about an hour into the Rituxan infusion. He was given hydrocortisone and Demerol and his symptoms subsided. Since admitted to the hospital, he was started on Solu-Medrol and Benadryl. His symptom has improved 2. Mantle cell lymphoma with leukemic phase. He presented with constitutional symptom and noted to have diffuse adenopathy as he presented with white blood cell count more than 40,000. A bone marrow biopsy, and biopsy of left axillary lymph node showed mantle cell lymphoma. Peripheral smear showed scattered large cell, but that was not seen in the lymph node biopsy or bone marrow. He completed first cycle of bendamustine last week. He was given Rituxan today, but developed adverse reaction as above. I plan to rechallenge him with Rituxan. 3. Pancytopenia. His white blood cell count has now trended to 5.8, but the peripheral smear still shows predominantly lymphocytes, which are likely due to mantle cell lymphoma. His absolute neutrophil count was only 800. He was started on neutropenic precaution. His hemoglobin has trended back up with transfusion. 4. Edema. He developed lower extremity edema and scrotal edema. His recent echocardiogram showed ejection fraction of 55%. He will continue him on diuretic. 5. Constitutional symptoms of new mantle cell lymphoma. 6. Hyperuricemia. He likely has a mild tumor lysis syndrome. Continue him on allopurinol. 7. Mild renal insufficiency. His kidney function is improved. Plan: 1. Continue steroid. 2. Continue allopurinol and diuretic. 3. Monitor CBC. 4. Plan to rechallenge him with Rituxan tomorrow. (1) Adverse reaction to drug Qualifiers: Encounter type: initial encounter Qualified Code(s): T50.905A - Adverse effect of unspecified drugs, medicaments and biological substances, initial encounter
[2018-04-13] MEDS: Allopurinol 300 MG Tablet PO SCH (19:37)
[2018-04-14] MEDS: MethylPREDNISolone Sod Succinate Inj 125 MG/2 ML Vial IV.PUSH SCH ×4 (05:02→23:26)
[2018-04-14 06:36] LABS: Hematocrit 23.4 % (39.0-51.0); Hemoglobin 7.6 gm/dL (13.0-17.0); Mean Corpuscular HGB Conc 32.7 % (32.0-36.0); Mean Corpuscular Hemoglobin 33.4 pg (27.0-34.0); Mean Corpuscular Volume 102.2 fL (80.0-100.0); Mean Platelet Volume 7.3 fL (7.0-11.0); Platelet Count 59 th/mm3 (150-450); Red Blood Count 2.29 mil/mm3 (4.50-5.90); Red Cell Distribution Width 25.9 % (11.6-17.2)
[2018-04-14 07:01] LABS: Calcium 8.6 mg/dL (8.5-10.1); Carbon Dioxide 21.9 meq/L (21.0-32.0); Potassium 4.3 meq/L (3.5-5.1)
--- NOTE | 2018-04-14 08:04 | P.PNONC ---
Subjective Interval history: Feeling better. He wants to start Rituxan today. He denies any chest pain. Shortness of breath has improved, he has been ambulating around the room. He denies any rash. Lower extremity edema has improved. Objective Vital Signs/Intake & Output: Vital Signs 04/13/18 09:43 04/13/18 09:56 04/13/18 09:57 Temperature 97.7 F Pulse Rate 95 H 95 H Respiratory Rate 22 18 Blood Pressure 123/77 Pulse Oximetry 99 97 04/13/18 11:34 04/13/18 11:38 04/13/18 12:00 Temperature 98.6 F Pulse Rate 95 H 98 H Respiratory Rate 20 Blood Pressure 120/70 Pulse Oximetry 98 96 04/13/18 15:20 04/13/18 15:21 04/13/18 16:00 Temperature 98.1 F Pulse Rate 96 H 96 H Respiratory Rate 16 20 Blood Pressure 114/68 Pulse Oximetry 97 96 04/13/18 19:20 04/13/18 20:14 04/13/18 21:09 Temperature 98.2 F Pulse Rate 108 H 102 H 102 H Respiratory Rate 19 20 Blood Pressure 125/77 Pulse Oximetry 95 04/13/18 23:28 04/14/18 00:11 04/14/18 03:00 Temperature 97.8 F Pulse Rate 102 H 102 H 70 Respiratory Rate 18 19 Blood Pressure 133/78 Pulse Oximetry 95 04/14/18 03:27 04/14/18 04:09 04/14/18 04:57 Temperature 97.5 F L Pulse Rate 101 H 102 H Respiratory Rate 20 Blood Pressure 127/76 Pulse Oximetry 94 L 95 Intake & Output 04/13/18 04/14/18 04/14/18 18:59 06:59 18:59 Intake Total 1300 / 1300 480 / 480 Output Total 1350 / 1350 1100 / 1100 Balance -50 / -50 -620 / -620 Weight 98.1 kg Intake: Oral 1300 / 1300 480 / 480 Output: Urine 1350 / 1350 1100 / 1100 Other: Date of Last Bowel Movement 04/13/18 04/13/18 Result Diagrams: 04/14/18 05:00 04/14/18 05:00 Laboratory Results: Laboratory Results - last 24 hr 04/13/18 04/13/18 04/13/18 04:40 12:31 16:54 WBC RBC Hgb Hct MCV MCH MCHC RDW Plt Count MPV Prelim Diff (Auto) Differential Comment Sodium Potassium Chloride Carbon Dioxide Anion Gap BUN Creatinine Estimated GFR POC Glucose 271 H 331 H Random Glucose Uric Acid 6.2 Calcium Lactate Dehydrogenase 334 H 04/13/18 04/13/18 04/14/18 20:18 23:34 05:00 WBC RBC Hgb Hct MCV MCH MCHC RDW Plt Count MPV Prelim Diff (Auto) Differential Comment Sodium 140 Potassium 4.3 Chloride 103 Carbon Dioxide 21.9 Anion Gap 15 BUN 31 H Creatinine 1.01 Estimated GFR 76 L POC Glucose 406 H 248 H Random Glucose 191 H Uric Acid Calcium 8.6 Lactate Dehydrogenase 04/14/18 05:00 WBC 7.0 RBC 2.29 L Hgb 7.6 L Hct 23.4 L MCV 102.2 H MCH 33.4 MCHC 32.7 RDW 25.9 H Plt Count 59 L MPV 7.3 Prelim Diff (Auto) Manual diff required Differential Comment . Sodium Potassium Chloride Carbon Dioxide Anion Gap BUN Creatinine Estimated GFR POC Glucose Random Glucose Uric Acid Calcium Lactate Dehydrogenase Medications: Active Medications Generic Name Dose Route Start Last Admin Trade Name Freq PRN Reason Stop Dose Admin Acetaminophen 650 mg 04/12/18 16:29 04/12/18 21:07 Tylenol PO 650 mg Q4H PRN Administration PRIOR TO BLOOD TRANSFUSIONS Albuterol 1 ampul 04/13/18 09:00 04/14/18 03:24 Duoneb Neb (Jennifer) NEB 1 ampul Q6HR ALT NEB JENNIFER Administration Allopurinol 300 mg 04/13/18 17:15 04/13/18 19:37 Zyloprim PO 300 mg DAILY JENNIFER Administration Diphenhydramine HCl 25 mg 04/12/18 18:00 04/14/18 05:02 Benadryl PO 25 mg Q6H JENNIFER Administration Diphenhydramine HCl 25 mg 04/12/18 14:17 04/12/18 21:08 Benadryl PO 25 mg Q4H PRN Administration rash/itch Diphenhydramine HCl 25 mg 04/12/18 16:29 04/12/18 16:35 Benadryl PO 25 mg Q4H PRN Administration PRIOR TO BLOOD TRANSFUSIONS Eszopiclone 3 mg 04/12/18 21:00 04/13/18 23:23 Lunesta PO 3 mg HS PRN Administration insomnia Fluticasone Propionate 2 spray 04/13/18 09:00 04/13/18 16:52 Flonase Nasal [place] NASAL Not Given DAILY JENNIFER Furosemide 20 mg 04/13/18 09:00 04/13/18 17:04 Lasix PO 20 mg BID@0900,1800 JENNIFER Administration Insulin Aspart 0 unit 04/13/18 17:00 04/13/18 20:21 Novolog Insulin Suppl Scale Inj SQ 9 unit ACHS JENNIFER Administration Protocol Methylprednisolone Sodium Succinate 60 mg 04/12/18 18:00 04/14/18 05:02 Solumedrol Inj IV.PUSH 60 mg Q6HR JENNIFER Administration Nicotine 1 patch 04/13/18 13:30 04/13/18 17:05 Habitrol 14 Mg Patch.24 Hr T-DERMAL 1 patch DAILY JENNIFER Administration Sodium Chloride 2 ml 04/12/18 12:05 04/13/18 00:56 Ns Flush IV.FLUSH 2 ml PRN PRN Administration FLUSH AFTER USING IV ACCESS Objective Remarks: GENERAL: Well-nourished, well-developed patient. SKIN: Warm and dry. Pale. HEAD: Normocephalic. EYES: No scleral icterus. No injection or drainage. NECK: Supple, trachea midline. No JVD or lymphadenopathy. LYMPHATIC: No adenopathy. CARDIOVASCULAR: Regular rate and rhythm without murmurs. RESPIRATORY: Breath sounds equal bilaterally. No accessory muscle use. GASTROINTESTINAL: Abdomen soft, non-tender, nondistended. EXTREMITIES: No cyanosis, 1+BLE edema. Scrotal edema stable. MUSCULOSKELETAL: Adequate muscle tone. NEUROLOGICAL: No obvious focal deficit. Awake, alert, and oriented x3. PSYCHIATRIC: Appropriate mood and affect; insight and judgment normal. Assessment/Plan (1) Adverse reaction to drug Code(s): T50.905A - Adverse effect of unspecified drugs, medicaments and biological substances, initial encounter Status: Acute (2) Symptomatic anemia Code(s): D64.9 - Anemia, unspecified Status: Acute (3) Mantle cell lymphoma Code(s): C83.10 - Mantle cell lymphoma, unspecified site Status: Acute - Plan Assessment: 1. Adverse reaction to Rituxan. He developed tachycardia, tachypnea, rigors, hypertension and hypoxia about an hour into the Rituxan infusion. He was given hydrocortisone and Demerol and his symptoms Resolved. He will continue Solu-Medrol until completion of Rituxan. 2. Mantle cell lymphoma with leukemic phase. He presented with constitutional symptom and noted to have diffuse adenopathy as he presented with white blood cell count more than 40,000. A bone marrow biopsy, and biopsy of left axillary lymph node showed mantle cell lymphoma. Peripheral smear showed scattered large cell, but that was not seen in the lymph node biopsy or bone marrow. He completed first cycle of bendamustine last week. He was given Rituxan today, but developed adverse reaction as above. I plan to rechallenge him with Rituxan. 3. Pancytopenia. His white blood cell count has now trended to 5.8, but the peripheral smear still shows predominantly lymphocytes, which are likely due to mantle cell lymphoma. His absolute neutrophil count was only 800. He was started on neutropenic precaution. His hemoglobin has trended back up with transfusion. 4. Edema. He developed lower extremity edema and scrotal edema. His recent echocardiogram showed ejection fraction of 55%. He will continue him on diuretic. 5. Constitutional symptoms of new mantle cell lymphoma. 6. Hyperuricemia. Uric acid back to normal. Continue him on allopurinol. 7. Mild renal insufficiency. His kidney function has improved. Plan: 1. Rechallenged with Rituxan today. Continue steroid. 2. Continue allopurinol and diuretic. 3. Monitor CBC. 4. Discussed with nursing staff and Dr. Eller. (1) Adverse reaction to drug Qualifiers: Encounter type: initial encounter Qualified Code(s): T50.905A - Adverse effect of unspecified drugs, medicaments and biological substances, initial encounter
--- NOTE | 2018-04-14 08:20 | P.PNIM ---
Subjective Interval history: still with lower ext and scrotal edema Physical Exam Vital signs: Vital Signs 04/13/18 09:43 04/13/18 09:56 04/13/18 09:57 Temperature 97.7 F Pulse Rate 95 H 95 H Respiratory Rate 22 18 Blood Pressure 123/77 Pulse Oximetry 99 97 04/13/18 11:34 04/13/18 11:38 04/13/18 12:00 Temperature 98.6 F Pulse Rate 95 H 98 H Respiratory Rate 20 Blood Pressure 120/70 Pulse Oximetry 98 96 04/13/18 15:20 04/13/18 15:21 04/13/18 16:00 Temperature 98.1 F Pulse Rate 96 H 96 H Respiratory Rate 16 20 Blood Pressure 114/68 Pulse Oximetry 97 96 04/13/18 19:20 04/13/18 20:14 04/13/18 21:09 Temperature 98.2 F Pulse Rate 108 H 102 H 102 H Respiratory Rate 19 20 Blood Pressure 125/77 Pulse Oximetry 95 04/13/18 23:28 04/14/18 00:11 04/14/18 03:00 Temperature 97.8 F Pulse Rate 102 H 102 H 70 Respiratory Rate 18 19 Blood Pressure 133/78 Pulse Oximetry 95 04/14/18 03:27 04/14/18 04:09 04/14/18 04:57 Temperature 97.5 F L Pulse Rate 101 H 102 H Respiratory Rate 20 Blood Pressure 127/76 Pulse Oximetry 94 L 95 Intake & Output 04/13/18 04/14/18 04/14/18 18:59 06:59 18:59 Intake Total 1300 / 1300 480 / 480 Output Total 1350 / 1350 1100 / 1100 Balance -50 / -50 -620 / -620 Weight 98.1 kg Intake: Oral 1300 / 1300 480 / 480 Output: Urine 1350 / 1350 1100 / 1100 Other: Date of Last Bowel Movement 04/13/18 04/13/18 heart reg lung cta abd s/nt ext 2plus lower ext edema. scrotal edema right chest port Results - Labs CBC & Chem 7: 04/14/18 05:00 04/14/18 05:00 Laboratory Results - last 24 hr 04/13/18 04/13/18 04/13/18 04:40 12:31 16:54 WBC RBC Hgb Hct MCV MCH MCHC RDW Plt Count MPV Prelim Diff (Auto) Differential Comment Sodium Potassium Chloride Carbon Dioxide Anion Gap BUN Creatinine Estimated GFR POC Glucose 271 H 331 H Random Glucose Uric Acid 6.2 Calcium Lactate Dehydrogenase 334 H 04/13/18 04/13/18 04/14/18 20:18 23:34 05:00 WBC RBC Hgb Hct MCV MCH MCHC RDW Plt Count MPV Prelim Diff (Auto) Differential Comment Sodium 140 Potassium 4.3 Chloride 103 Carbon Dioxide 21.9 Anion Gap 15 BUN 31 H Creatinine 1.01 Estimated GFR 76 L POC Glucose 406 H 248 H Random Glucose 191 H Uric Acid Calcium 8.6 Lactate Dehydrogenase 04/14/18 05:00 WBC 7.0 RBC 2.29 L Hgb 7.6 L Hct 23.4 L MCV 102.2 H MCH 33.4 MCHC 32.7 RDW 25.9 H Plt Count 59 L MPV 7.3 Prelim Diff (Auto) Manual diff required Differential Comment . Sodium Potassium Chloride Carbon Dioxide Anion Gap BUN Creatinine Estimated GFR POC Glucose Random Glucose Uric Acid Calcium Lactate Dehydrogenase Assessment and Plan - Assessment (1) Anaphylactic reaction Code(s): T78.2XXA - Anaphylactic shock, unspecified, initial encounter Plan: 1. Mantle cell lymphoma. 03/23 CT abdomen/pelvis: 1. Markedly splenomegaly. 2. Prominent abdominal adenopathy including prominent groin adenopathy greater on the right. 3. Low-density lesion in the liver is nonspecific and measures 2.5 cm. 03/23 CT chest 1. Prominent axillary and mediastinal adenopathy. Lymphoma/leukemia should be excluded. 2. No infiltrate or mass. 03/24. Bone marrow biopsy 03/25 Left axillary node biopsy with u/s 04/01 IR.....1.implanted central venous port catheter placement. An 8 [place] Power port was placed. oncology plans to rechallenge him with rituxamab today. discussed with Dr Shell. will cont iv solumedrol/benadryl today then taper tomorrow resumed his diuretic for lower ext/scrotal edema. elevate scrotum. low albumen noted. change to iv lasix today. bmp monitor 2. anaphylaxis to Rituximab - Pt sent to ED today for anaphylaxis to Rituximab. Rash on back/neck, sob/hypoxia, hypotension. Improving with steroids/benadryl continue solumedrol and benadryl telemetry nebs 3. 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 pt describing dysphagia to certain foods dvt prophylaxis. (2) Mantle cell lymphoma Code(s): C83.10 - Mantle cell lymphoma, unspecified site Status: Acute
[2018-04-14] MEDS: Allopurinol 300 MG Tablet PO SCH (08:30)
[2018-04-14] MEDS: Insulin NovoLOG Aspart Correctional Sugar Inj SQ SCH ×4 (08:41→21:22)
[2018-04-14 09:48] LABS: Lymphocytes 84 % (9-44); Monocytes 7 % (0-8); Tallied Nucleated RBC 2 (0-0)
[2018-04-14 09:49] LABS: Platelet Morphology Normal (Normal)
[2018-04-14 09:50] LABS: Polychromasia 2.3 % (0.0-1.9)
[2018-04-14] MEDS ORDERED: Acetaminophen 325 MG Tablet PO ONE (12:30)
[2018-04-14] MEDS ORDERED: RITUXIMAB IV.SIG ONE (13:00)
[2018-04-14] MEDS ORDERED: SODIUM CHLOR 0.9% IV.SIG ONE (13:00)
[2018-04-14] MEDS: Sod Chloride 0.9% Inj 1,000 ML IV.SIG SCH ×2 (15:52→21:25)
[2018-04-14] MEDS: Heparin Central Flush 100 UNIT/ML 5 ML Vial IV.FLUSH PRN (23:27)
[2018-04-15] MEDS: Heparin Central Flush 100 UNIT/ML 5 ML Vial IV.FLUSH PRN (05:12)
[2018-04-15] MEDS: MethylPREDNISolone Sod Succinate Inj 125 MG/2 ML Vial IV.PUSH SCH (05:12)
[2018-04-15 06:40] LABS: Mean Corpuscular HGB Conc 32.4 % (32.0-36.0); Mean Corpuscular Hemoglobin 33.2 pg (27.0-34.0); Mean Corpuscular Volume 102.3 fL (80.0-100.0); Mean Platelet Volume 8.3 fL (7.0-11.0); Red Blood Count 2.15 mil/mm3 (4.50-5.90); Red Cell Distribution Width 27.2 % (11.6-17.2); White Blood Count 3.8 th/mm3 (4.0-11.0)
[2018-04-15 06:58] LABS: Albumin 2.6 g/dL (3.4-5.0); Anion Gap 12 meq/L (5-15); Aspartate Aminotransferase 36 U/L (15-37); Blood Urea Nitrogen 33 mg/dL (7-18); Calcium 8.4 mg/dL (8.5-10.1); Carbon Dioxide 24.4 meq/L (21.0-32.0); Chloride 104 meq/L (98-107); Glomerular Filtration Rate 74 mL/min (>89); Glucose,Random 225 mg/dL (74-106); Potassium 4.5 meq/L (3.5-5.1); Sodium 140 meq/L (136-145)
[2018-04-15 07:00] LABS: Alanine Aminotransferase 13 U/L (12-78); Lactate Dehydrogenase 361 U/L (87-241); Uric Acid 6.4 mg/dl (2.6-7.2)
[2018-04-15 07:02] LABS: Alkaline Phosphatase 94 U/L (45-117); Total Protein 5.4 g/dL (6.4-8.2)
[2018-04-15 07:39] LABS: Hemoglobin 7.1 gm/dL (13.0-17.0); Platelet Count 4 th/mm3 (150-450)
[2018-04-15 07:46] LABS: Lymphocytes 79 % (9-44); Monocytes 5 % (0-8); Platelet Estimate Rare (Normal); Platelet Morphology Normal (Normal); Tallied Nucleated RBC 3 (0-0)
[2018-04-15 07:47] LABS: Stomatocytes 1+
[2018-04-15] MEDS ORDERED: Acetaminophen 325 MG Tablet PO PRN (08:36)
[2018-04-15] MEDS ORDERED: Albumin Human 25% Inj 100 ML IV.SIG ONE (08:37)
--- NOTE | 2018-04-15 08:40 | P.PNIM ---
Subjective Interval history: pt still with edema. diuresed but received alot of fluid with his chemo rx. Physical Exam Vital signs: Vital Signs 04/14/18 09:21 04/14/18 11:35 04/14/18 15:28 Temperature 98.5 F Pulse Rate 111 H 106 H 106 H Respiratory Rate 18 20 20 Blood Pressure 133/78 Pulse Oximetry 96 95 04/14/18 16:00 04/14/18 19:00 04/14/18 20:00 Temperature 98.3 F 98.7 F Pulse Rate 107 H 106 H 112 H Respiratory Rate 20 22 Blood Pressure 136/78 133/81 Pulse Oximetry 96 95 04/14/18 21:00 04/14/18 22:58 04/14/18 23:29 Temperature 98.3 F Pulse Rate 120 H 129 H 127 H Respiratory Rate 18 Blood Pressure 118/66 Pulse Oximetry 93 L 04/15/18 03:47 04/15/18 04:23 04/15/18 05:07 Temperature 98.3 F Pulse Rate 104 H 108 H 112 H Respiratory Rate 20 Blood Pressure 114/67 Pulse Oximetry 91 L 04/15/18 07:55 04/15/18 07:56 04/15/18 08:00 Temperature Pulse Rate 102 H Respiratory Rate 18 Blood Pressure Pulse Oximetry 96 97 Intake & Output 04/14/18 04/15/18 04/15/18 18:59 06:59 18:59 Intake Total 1575 / 1575 Output Total 1175 / 1175 Balance 400 / 400 Weight 98.3 kg Intake: IV 1575 / 1575 NS Inj 1,000 ML @ 100 mls/hr IV 1000 / 1000 .SIG .Q10H SHERLY Rx#:[id number] Rituxan Inj 750 MG In NS Inj 575 / 575 500 ML @ As Directed IV.SIG ONCE ONE Rx#:[id number] Output: Urine 1175 / 1175 Other: # Voids 3 Date of Last Bowel Movement 04/14/18 04/14/18 # Bowel Movements 1 heent neg heart reg lung cta abd s/nte scrotal and lower ext edema Results - Labs CBC & Chem 7: 04/15/18 05:15 04/15/18 05:15 Laboratory Results - last 24 hr 04/14/18 04/14/18 04/14/18 05:00 11:33 17:18 WBC RBC Hgb Hct MCV MCH MCHC RDW Plt Count MPV Prelim Diff (Auto) WBC Differential Manual diff final Seg Neuts % (Manual) 9 L Band Neuts % (Manual) Lymphocytes % (Manual) 84 H Monocytes % (Manual) 7 Abs Neuts (Manual) 0.6 L Nucleated RBCs/100 WBC 2 H Differential Comment Platelet Estimate Low L Platelet Morphology Normal Polychromasia 2.3 H Stomatocytes Sodium Potassium Chloride Carbon Dioxide Anion Gap BUN Creatinine Estimated GFR POC Glucose 302 H 268 H Random Glucose Uric Acid Calcium Total Bilirubin AST ALT Alkaline Phosphatase Lactate Dehydrogenase Total Protein Albumin 04/14/18 04/15/18 04/15/18 21:22 05:15 05:15 WBC 3.8 L RBC 2.15 L Hgb 7.1 L Hct 22.0 L MCV 102.3 H MCH 33.2 MCHC 32.4 RDW 27.2 H Plt Count 4 L* D MPV 8.3 Prelim Diff (Auto) Slide review pending WBC Differential Manual diff final Seg Neuts % (Manual) 11 L Band Neuts % (Manual) 5 Lymphocytes % (Manual) 79 H Monocytes % (Manual) 5 Abs Neuts (Manual) 0.6 L Nucleated RBCs/100 WBC 3 H Differential Comment . Platelet Estimate Rare L Platelet Morphology Normal Polychromasia Stomatocytes 1+ H Sodium 140 Potassium 4.5 Chloride 104 Carbon Dioxide 24.4 Anion Gap 12 BUN 33 H Creatinine 1.03 Estimated GFR 74 L POC Glucose 131 H Random Glucose 225 H Uric Acid 6.4 Calcium 8.4 L Total Bilirubin 1.9 H AST 36 ALT 13 Alkaline Phosphatase 94 Lactate Dehydrogenase 361 H Total Protein 5.4 L Albumin 2.6 L 04/15/18 07:42 WBC RBC Hgb Hct MCV MCH MCHC RDW Plt Count MPV Prelim Diff (Auto) WBC Differential Seg Neuts % (Manual) Band Neuts % (Manual) Lymphocytes % (Manual) Monocytes % (Manual) Abs Neuts (Manual) Nucleated RBCs/100 WBC Differential Comment Platelet Estimate Platelet Morphology Polychromasia Stomatocytes Sodium Potassium Chloride Carbon Dioxide Anion Gap BUN Creatinine Estimated GFR POC Glucose 260 H Random Glucose Uric Acid Calcium Total Bilirubin AST ALT Alkaline Phosphatase Lactate Dehydrogenase Total Protein Albumin Assessment and Plan - Assessment (1) Anaphylactic reaction Code(s): T78.2XXA - Anaphylactic shock, unspecified, initial encounter Plan: 1. Mantle cell lymphoma. 03/23 CT abdomen/pelvis: 1. Markedly splenomegaly. 2. Prominent abdominal adenopathy including prominent groin adenopathy greater on the right. 3. Low-density lesion in the liver is nonspecific and measures 2.5 cm. 03/23 CT chest 1. Prominent axillary and mediastinal adenopathy. Lymphoma/leukemia should be excluded. 2. No infiltrate or mass. 03/24. Bone marrow biopsy 03/25 Left axillary node biopsy with u/s 04/01 IR.....1.implanted central venous port catheter placement. An 8 [place] Power port was placed. oncology rechallenged pt last night with rituximab. pt did well. stop benadryl and steroids cont iv lasix with albumen this AM for edema. prbc transfusion per oncology this AM decide on dc later today 2. anaphylaxis to Rituximab - Pt sent to ED today for anaphylaxis to Rituximab. Rash on back/neck, sob/hypoxia, hypotension. Improved with steroids/benadryl stop 3. Anemia/thrombocytopenia -Severe anemia related to mantle cell - s/p 2 units of prbc 04/12 - transfuse today per oncology consulted PT consulted ST. pt describing dysphagia to certain foods dvt prophylaxis. (2) Mantle cell lymphoma Code(s): C83.10 - Mantle cell lymphoma, unspecified site Status: Acute
[2018-04-15] MEDS: Allopurinol 300 MG Tablet PO SCH (08:50)
[2018-04-15] MEDS: Insulin NovoLOG Aspart Correctional Sugar Inj SQ SCH ×4 (08:52→21:40)
[2018-04-15] MEDS ORDERED: Sodium Chlor 0.9% Inj 250 ML IV.SIG SCH (09:00)
--- NOTE | 2018-04-15 11:26 | P.PNONC ---
Subjective Interval history: Patient lying in bed, states that he is not feeling well. He reports that he feels as if he may pass out. Describes a "lightheaded feeling". --Currently awaiting blood and platelet transfusion. Objective Vital Signs/Intake & Output: Vital Signs 04/14/18 11:35 04/14/18 15:28 04/14/18 16:00 Temperature 98.5 F 98.3 F Pulse Rate 106 H 106 H 107 H Respiratory Rate 20 20 20 Blood Pressure 133/78 136/78 Pulse Oximetry 95 96 04/14/18 19:00 04/14/18 20:00 04/14/18 21:00 Temperature 98.7 F Pulse Rate 106 H 112 H 120 H Respiratory Rate 22 18 Blood Pressure 133/81 Pulse Oximetry 95 04/14/18 22:58 04/14/18 23:29 04/15/18 03:47 Temperature 98.3 F Pulse Rate 129 H 127 H 104 H Respiratory Rate 20 Blood Pressure 118/66 Pulse Oximetry 93 L 04/15/18 04:23 04/15/18 05:07 04/15/18 07:55 Temperature 98.3 F Pulse Rate 108 H 112 H 102 H Respiratory Rate 18 Blood Pressure 114/67 Pulse Oximetry 91 L 04/15/18 07:56 04/15/18 08:00 Temperature Pulse Rate Respiratory Rate Blood Pressure Pulse Oximetry 96 97 Intake & Output 04/14/18 04/15/18 04/15/18 18:59 06:59 18:59 Intake Total 1575 / 1575 Output Total 1175 / 1175 Balance 400 / 400 Weight 98.3 kg Intake: IV 1575 / 1575 NS Inj 1,000 ML @ 100 mls/hr IV 1000 / [address] [facility] Rx#:[id number] Rituxan Inj 750 MG In NS Inj 575 / 575 500 ML @ As Directed IV.SIG ONCE ONE Rx#:[id number] Output: Urine 1175 / 1175 Other: # Voids 3 Date of Last Bowel Movement 04/14/18 04/14/18 04/15/18 # Bowel Movements 1 Result Diagrams: 04/15/18 05:15 04/15/18 05:15 Laboratory Results: Laboratory Results - last 24 hr 04/14/18 04/14/18 04/14/18 11:33 17:18 21:22 WBC RBC Hgb Hct MCV MCH MCHC RDW Plt Count MPV Prelim Diff (Auto) WBC Differential Seg Neuts % (Manual) Band Neuts % (Manual) Lymphocytes % (Manual) Monocytes % (Manual) Abs Neuts (Manual) Nucleated RBCs/100 WBC Differential Comment Platelet Estimate Platelet Morphology Stomatocytes Sodium Potassium Chloride Carbon Dioxide Anion Gap BUN Creatinine Estimated GFR POC Glucose 302 H 268 H 131 H Random Glucose Uric Acid Calcium Total Bilirubin AST ALT Alkaline Phosphatase Lactate Dehydrogenase Total Protein Albumin 04/15/18 04/15/18 04/15/18 05:15 05:15 07:42 WBC 3.8 L RBC 2.15 L Hgb 7.1 L Hct 22.0 L MCV 102.3 H MCH 33.2 MCHC 32.4 RDW 27.2 H Plt Count 4 L* D MPV 8.3 Prelim Diff (Auto) Slide review pending WBC Differential Manual diff final Seg Neuts % (Manual) 11 L Band Neuts % (Manual) 5 Lymphocytes % (Manual) 79 H Monocytes % (Manual) 5 Abs Neuts (Manual) 0.6 L Nucleated RBCs/100 WBC 3 H Differential Comment . Platelet Estimate Rare L Platelet Morphology Normal Stomatocytes 1+ H Sodium 140 Potassium 4.5 Chloride 104 Carbon Dioxide 24.4 Anion Gap 12 BUN 33 H Creatinine 1.03 Estimated GFR 74 L POC Glucose 260 H Random Glucose 225 H Uric Acid 6.4 Calcium 8.4 L Total Bilirubin 1.9 H AST 36 ALT 13 Alkaline Phosphatase 94 Lactate Dehydrogenase 361 H Total Protein 5.4 L Albumin 2.6 L Medications: Active Medications Generic Name Dose Route Start Last Admin Trade Name Freq PRN Reason Stop Dose Admin Acetaminophen 650 mg 04/12/18 16:29 04/12/18 21:07 Tylenol PO 650 mg Q4H PRN Administration PRIOR TO BLOOD TRANSFUSIONS Albuterol 1 ampul 04/13/18 09:00 04/15/18 07:54 Duoneb Neb (Jennifer) NEB 1 ampul Q6HR ALT NEB JENNIFER Administration Allopurinol 300 mg 04/13/18 17:15 04/15/18 08:50 Zyloprim PO 300 mg DAILY JENNIFER Administration Diphenhydramine HCl 25 mg 04/12/18 14:17 04/12/18 21:08 Benadryl PO 25 mg Q4H PRN Administration rash/itch Diphenhydramine HCl 25 mg 04/12/18 16:29 04/12/18 16:35 Benadryl PO 25 mg Q4H PRN Administration PRIOR TO BLOOD TRANSFUSIONS Eszopiclone 3 mg 04/12/18 21:00 04/14/18 23:26 Lunesta PO 3 mg HS PRN Administration insomnia Fluticasone Propionate 2 spray 04/13/18 09:00 04/14/18 08:30 Flonase Nasal [place] NASAL 2 spray DAILY JENNIFER Administration Furosemide 20 mg 04/14/18 09:00 04/15/18 08:49 Lasix Inj IV.PUSH 20 mg BID@0900,1800 JENNIFER Administration Heparin Sodium (Porcine) 250 unit 04/13/18 06:11 04/15/18 05:12 Heparin Central Flush IV.FLUSH 250 unit PRN PRN Administration Flush Infusapot Insulin Aspart 0 unit 04/13/18 17:00 04/15/18 08:52 Novolog Insulin Suppl Scale Inj SQ 5 unit ACHS JENNIFER Administration Protocol Nicotine 1 patch 04/13/18 13:30 04/15/18 08:50 Habitrol 14 Mg Patch.24 Hr T-DERMAL 1 patch DAILY JENNIFER Administration Patch Removal 1 each 04/14/18 09:00 04/14/18 11:27 Remove Old Patch T-DERMAL 1 each DAILY JENNIFER Administration Sodium Chloride 2 ml 04/12/18 12:05 04/15/18 08:50 Ns Flush IV.FLUSH 2 ml PRN PRN Administration FLUSH AFTER USING IV ACCESS Sodium Chloride 5 ml 04/13/18 06:11 04/14/18 08:43 Ns Flush IV.FLUSH 5 ml PRN PRN Administration Flush Infusaport Objective Remarks: GENERAL: Well-nourished, well-developed, middle-aged male patient. Lying in bed. SKIN: Pale, warm and dry. Port accessed right chest wall-dressing dry/intact. Petechiae rash throughout right axilla and chest wall, bilateral nasal bridge. HEAD: Normocephalic. EYES: No scleral icterus. No injection or drainage. PERRLA. MOUTH: [place], dry mucous membranes. Right tonsil with ecchymotic spots NECK: Supple, trachea midline. No JVD or lymphadenopathy. CARDIOVASCULAR: Regular rate and rhythm without murmurs. RESPIRATORY: Breath sounds equal bilaterally. No accessory muscle use. GASTROINTESTINAL: Abdomen soft, non-tender, nondistended. EXTREMITIES: No cyanosis, 2+ bilateral ankle edema. MUSCULOSKELETAL: Adequate muscle tone. NEUROLOGICAL: No obvious focal deficit. Awake, alert, and oriented x3. PSYCHIATRIC: Appropriate mood and affect; insight and judgment normal. Assessment/Plan (1) Adverse reaction to drug Code(s): T50.905A - Adverse effect of unspecified drugs, medicaments and biological substances, initial encounter Status: Acute (2) Symptomatic anemia Code(s): D64.9 - Anemia, unspecified Status: Acute (3) Mantle cell lymphoma Code(s): C83.10 - Mantle cell lymphoma, unspecified site Status: Acute - Plan Assessment: 1. Adverse reaction to Rituxan. He developed tachycardia, tachypnea, rigors, hypertension and hypoxia about an hour into the Rituxan infusion. He was given hydrocortisone and Demerol and his symptoms Resolved. He will continue Solu-Medrol until completion of Rituxan. Rechallenge with Rituxan on 04/14/2018, tolerated well. 2. Mantle cell lymphoma with leukemic phase. He presented with constitutional symptom and noted to have diffuse adenopathy as he presented with white blood cell count more than 40,000. A bone marrow biopsy, and biopsy of left axillary lymph node showed mantle cell lymphoma. Peripheral smear showed scattered large cell, but that was not seen in the lymph node biopsy or bone marrow. He completed first cycle of bendamustine last week. He was given Rituxan as an outpatient, but developed adverse reaction as above. He was rechallenged with Rituxan on 04/14/2018 and tolerated it well. 3. Pancytopenia. His white blood cell count has now trended to 3.8. His peripheral smear still showing predominantly lymphocytes, which was likely due to mantle cell lymphoma. His absolute neutrophil count is only 600. Neutropenic precautions are in place. Hemoglobin 7.1 today, we have ordered 2 units of pRBC. 4. Edema. He developed lower extremity edema and scrotal edema. His recent echocardiogram showed ejection fraction of 55%. He will continue him on diuretic. 5. Constitutional symptoms of new mantle cell lymphoma. 6. Hyperuricemia. Uric acid back to normal. Continue him on allopurinol. 7. Mild renal insufficiency. His kidney function has improved. Plan: 1. Rechallenged with Rituxan yesterday. Reportedly tolerated well. 2. Continue allopurinol and diuretic. We will add an additional dose of Lasix in between 2 units of pRBC. 3. Thrombocytopenia with platelet count of 4. We will transfuse 1 unit of platelets STAT as patient is currently symptomatic. Will recheck CBC this afternoon. 4. Currently neurologically intact. The patient's nurse was made aware to notify us if any changes in neuro status. Continue neuro checks. 4. Anemia with hemoglobin of 7.1. We will transfuse 2 units pRBC STAT. - Attending Statement The exam, history, and the medical decision-making described in the above note were completed with the assistance of the mid-level provider. I reviewed and agree with the findings presented. I attest that I had a [id number] encounter with the patient on the same day, and personally performed and documented my assessment and findings in the medical record.Patient tolerated Rituxan well yesterday. He was feeling well when I saw him in the morning and he was ordering breakfast. Still has edema. Hgb and platelet had trended down lower. Will arrange for transfusion. Give extra dose of lasix with transfusion. Can stop steroid. Continue to monitor closely and tranasfuse prn. Discussed with (1) Adverse reaction to drug Qualifiers: Encounter type: initial encounter Qualified Code(s): T50.905A - Adverse effect of unspecified drugs, medicaments and biological substances, initial encounter
[2018-04-15] MEDS: Acetaminophen 325 MG Tablet PO PRN ×2 (11:49→17:19)
[2018-04-16 05:04] LABS: Hematocrit 25.3 % (39.0-51.0); Hemoglobin 8.4 gm/dL (13.0-17.0); Mean Corpuscular HGB Conc 33.2 % (32.0-36.0); Mean Corpuscular Hemoglobin 32.5 pg (27.0-34.0); Mean Corpuscular Volume 98.1 fL (80.0-100.0); Mean Platelet Volume 7.8 fL (7.0-11.0); Platelet Count 23 th/mm3 (150-450); Red Blood Count 2.58 mil/mm3 (4.50-5.90); White Blood Count 5.4 th/mm3 (4.0-11.0)
[2018-04-16 05:45] LABS: Alanine Aminotransferase 12 U/L (12-78); Albumin 2.9 g/dL (3.4-5.0); Alkaline Phosphatase 81 U/L (45-117); Anion Gap 16 meq/L (5-15); Aspartate Aminotransferase 21 U/L (15-37); Blood Urea Nitrogen 32 mg/dL (7-18); Calcium 8.9 mg/dL (8.5-10.1); Carbon Dioxide 24.4 meq/L (21.0-32.0); Chloride 103 meq/L (98-107); Glomerular Filtration Rate 73 mL/min (>89); Glucose,Random 115 mg/dL (74-106); Potassium 3.5 meq/L (3.5-5.1); Sodium 143 meq/L (136-145); Total Protein 5.9 g/dL (6.4-8.2)
--- NOTE | 2018-04-16 08:26 | P.PNIM ---
Subjective Interval history: still with scrotal and lower ext edema Physical Exam Vital signs: Vital Signs 04/15/18 08:38 04/15/18 11:20 04/15/18 12:23 Temperature 97.9 F 98.1 F 97.9 F Pulse Rate 111 H 100 H 102 H Respiratory Rate 20 20 20 Blood Pressure 140/89 134/84 138/86 Pulse Oximetry 96 96 04/15/18 12:43 04/15/18 13:10 04/15/18 13:12 Temperature 97.8 F 98.4 F 98.0 F Pulse Rate 101 H 107 H 107 H Respiratory Rate 20 20 20 Blood Pressure 128/91 H 142/76 H 140/78 Pulse Oximetry 97 96 04/15/18 13:13 04/15/18 16:20 04/15/18 16:31 Temperature 98.2 F Pulse Rate 105 H 85 104 H Respiratory Rate 22 18 20 Blood Pressure Pulse Oximetry 95 04/15/18 16:46 04/15/18 18:26 04/15/18 20:00 Temperature 98.0 F 98.2 F 98.2 F Pulse Rate 100 H 110 H 98 H Respiratory Rate 20 20 20 Blood Pressure 138/80 135/74 134/81 Pulse Oximetry 95 97 98 04/15/18 20:05 04/15/18 22:19 04/16/18 00:00 Temperature 98.0 F Pulse Rate 98 H 87 92 H Respiratory Rate 18 20 Blood Pressure 127/77 Pulse Oximetry 98 97 04/16/18 04:00 Temperature 97.9 F Pulse Rate 99 H Respiratory Rate 24 Blood Pressure 133/80 Pulse Oximetry 94 L Intake & Output 04/15/18 04/16/18 04/16/18 18:59 06:59 18:59 Intake Total 1560 / 1560 880 / 880 Output Total 850 / 850 600 / 600 Balance 710 / 710 280 / 280 Intake: Oral 1560 / 1560 480 / 480 Intake (Blood Product) Amt 0 / 0 400 / 400 Plt Pheresis B Leukoreduced 0 / 0 Unit [id number] Rbc As-3 Leukoreduced Unit 0 / 0 [id number] Rbc As-3 Leukoreduced Unit 0 / 0 400 / 400 [id number] Output: Urine 850 / 850 600 / 600 Other: # Voids 4 5 Date of Last Bowel Movement 04/15/18 04/15/18 # Bowel Movements 1 heart reg lung cta abd s/nt ext 1plus lower ext edema/scrotal edema Results - Labs CBC & Chem 7: 04/16/18 04:16 04/16/18 04:16 Laboratory Results - last 24 hr 04/15/18 04/15/18 04/15/18 08:36 11:30 11:30 WBC RBC Hgb Hct MCV MCH MCHC RDW Plt Count MPV Prelim Diff (Auto) Differential Comment Sodium Potassium Chloride Carbon Dioxide Anion Gap BUN Creatinine Estimated GFR POC Glucose Random Glucose Calcium Total Bilirubin AST ALT Alkaline Phosphatase Total Protein Albumin Blood Type O Positive Antibody Screen Negative MTS Gel Crossmatch See Detail See Detail Bld Prod Order Comment Cancelled Cancelled 04/15/18 04/15/18 04/15/18 11:51 16:39 21:39 WBC RBC Hgb Hct MCV MCH MCHC RDW Plt Count MPV Prelim Diff (Auto) Differential Comment Sodium Potassium Chloride Carbon Dioxide Anion Gap BUN Creatinine Estimated GFR POC Glucose 293 H 352 H 234 H Random Glucose Calcium Total Bilirubin AST ALT Alkaline Phosphatase Total Protein Albumin Blood Type Antibody Screen MTS Gel Crossmatch Bld Prod Order Comment 04/16/18 04/16/18 04:16 04:16 WBC 5.4 RBC 2.58 L Hgb 8.4 L Hct 25.3 L MCV 98.1 D MCH 32.5 MCHC 33.2 RDW 24.0 H D Plt Count 23 L D MPV 7.8 Prelim Diff (Auto) Manual diff required Differential Comment . Sodium 143 Potassium 3.5 D Chloride 103 Carbon Dioxide 24.4 Anion Gap 16 H BUN 32 H Creatinine 1.04 Estimated GFR 73 L POC Glucose Random Glucose 115 H D Calcium 8.9 Total Bilirubin 1.7 H AST 21 ALT 12 Alkaline Phosphatase 81 Total Protein 5.9 L Albumin 2.9 L Blood Type Antibody Screen MTS Gel Crossmatch Bld Prod Order Comment Assessment and Plan - Assessment (1) Anaphylactic reaction Code(s): T78.2XXA - Anaphylactic shock, unspecified, initial encounter Plan: 1. Mantle cell lymphoma. 03/23 CT abdomen/pelvis: 1. Markedly splenomegaly. 2. Prominent abdominal adenopathy including prominent groin adenopathy greater on the right. 3. Low-density lesion in the liver is nonspecific and measures 2.5 cm. 03/23 CT chest 1. Prominent axillary and mediastinal adenopathy. Lymphoma/leukemia should be excluded. 2. No infiltrate or mass. 03/24. Bone marrow biopsy 03/25 Left axillary node biopsy with u/s 04/01 IR.....1.implanted central venous port catheter placement. An 8 [place] Power port was placed. oncology rechallenged pt with rituximab. pt did well. stopped benadryl and steroids iv lasix for edema. prbc transfusion and plts per oncology 04/15 dc when ok with oncology 2. anaphylaxis to Rituximab - Pt sent to ED today for anaphylaxis to Rituximab. Rash on back/neck, sob/hypoxia, hypotension. Improved with steroids/benadryl stop 3. 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 pt describing dysphagia to certain foods dvt prophylaxis. (2) Mantle cell lymphoma Code(s): C83.10 - Mantle cell lymphoma, unspecified site Status: Acute
[2018-04-16 08:45] LABS: Lymphocytes 92 % (9-44); Monocytes 3 % (0-8); Myelocytes 1 % (0-0); Ovalocytes 1+
[2018-04-16 08:46] LABS: Platelet Morphology Normal (Normal)
--- NOTE | 2018-04-16 09:23 | P.PNONC ---
Subjective Interval history: Patient afebrile overnight, sleeping on approach. Awakens easily. Denies any further lightheadedness. Denies any bleeding. No new complaints at this time. Objective Vital Signs/Intake & Output: Vital Signs 04/15/18 11:20 04/15/18 12:23 04/15/18 12:43 Temperature 98.1 F 97.9 F 97.8 F Pulse Rate 100 H 102 H 101 H Respiratory Rate 20 20 20 Blood Pressure 134/84 138/86 128/91 H Pulse Oximetry 96 04/15/18 13:10 04/15/18 13:12 04/15/18 13:13 Temperature 98.4 F 98.0 F Pulse Rate 107 H 107 H 105 H Respiratory Rate 20 20 22 Blood Pressure 142/76 H 140/78 Pulse Oximetry 97 96 04/15/18 16:20 04/15/18 16:31 04/15/18 16:46 Temperature 98.2 F 98.0 F Pulse Rate 85 104 H 100 H Respiratory Rate 18 20 20 Blood Pressure 138/80 Pulse Oximetry 95 95 04/15/18 18:26 04/15/18 20:00 04/15/18 20:05 Temperature 98.2 F 98.2 F Pulse Rate 110 H 98 H 98 H Respiratory Rate 20 20 Blood Pressure 135/74 134/81 Pulse Oximetry 97 98 04/15/18 22:19 04/16/18 00:00 04/16/18 04:00 Temperature 98.0 F 97.9 F Pulse Rate 87 92 H 99 H Respiratory Rate 18 20 24 Blood Pressure 127/77 133/80 Pulse Oximetry 98 97 94 L 04/16/18 08:00 Temperature 97.9 F Pulse Rate 100 H Respiratory Rate 16 Blood Pressure 132/84 Pulse Oximetry 95 Intake & Output 04/15/18 04/16/18 04/16/18 18:59 06:59 18:59 Intake Total 1560 / 1560 880 / 880 Output Total 850 / 850 600 / 600 Balance 710 / 710 280 / 280 Intake: Oral 1560 / 1560 480 / 480 Intake (Blood Product) Amt 0 / 0 400 / 400 Plt Pheresis B Leukoreduced 0 / 0 Unit [id number] Rbc As-3 Leukoreduced Unit 0 / 0 [id number] Rbc As-3 Leukoreduced Unit 0 / 0 400 / 400 [id number] Output: Urine 850 / 850 600 / 600 Other: # Voids 4 5 Date of Last Bowel Movement 04/15/18 04/15/18 # Bowel Movements 1 Result Diagrams: 04/16/18 04:16 04/16/18 04:16 Laboratory Results: Laboratory Results - last 24 hr 04/15/18 04/15/18 04/15/18 08:36 11:30 11:30 WBC RBC Hgb Hct MCV MCH MCHC RDW Plt Count MPV Prelim Diff (Auto) WBC Differential Seg Neuts % (Manual) Band Neuts % (Manual) Lymphocytes % (Manual) Monocytes % (Manual) Myelocytes % (Man) Abs Neuts (Manual) Differential Comment Platelet Estimate Platelet Morphology Ovalocytes Sodium Potassium Chloride Carbon Dioxide Anion Gap BUN Creatinine Estimated GFR POC Glucose Random Glucose Calcium Total Bilirubin AST ALT Alkaline Phosphatase Total Protein Albumin Blood Type O Positive Antibody Screen Negative MTS Gel Crossmatch See Detail See Detail Bld Prod Order Comment Cancelled Cancelled 04/15/18 04/15/18 04/15/18 11:51 16:39 21:39 WBC RBC Hgb Hct MCV MCH MCHC RDW Plt Count MPV Prelim Diff (Auto) WBC Differential Seg Neuts % (Manual) Band Neuts % (Manual) Lymphocytes % (Manual) Monocytes % (Manual) Myelocytes % (Man) Abs Neuts (Manual) Differential Comment Platelet Estimate Platelet Morphology Ovalocytes Sodium Potassium Chloride Carbon Dioxide Anion Gap BUN Creatinine Estimated GFR POC Glucose 293 H 352 H 234 H Random Glucose Calcium Total Bilirubin AST ALT Alkaline Phosphatase Total Protein Albumin Blood Type Antibody Screen MTS Gel Crossmatch Bld Prod Order Comment 04/16/18 04/16/18 04:16 04:16 WBC 5.4 RBC 2.58 L Hgb 8.4 L Hct 25.3 L MCV 98.1 D MCH 32.5 MCHC 33.2 RDW 24.0 H D Plt Count 23 L D MPV 7.8 Prelim Diff (Auto) Manual diff required WBC Differential Manual diff final Seg Neuts % (Manual) 3 L Band Neuts % (Manual) 1 Lymphocytes % (Manual) 92 H Monocytes % (Manual) 3 Myelocytes % (Man) 1 H Abs Neuts (Manual) 0.3 L* Differential Comment . Platelet Estimate Low L Platelet Morphology Normal Ovalocytes 1+ H Sodium 143 Potassium 3.5 D Chloride 103 Carbon Dioxide 24.4 Anion Gap 16 H BUN 32 H Creatinine 1.04 Estimated GFR 73 L POC Glucose Random Glucose 115 H D Calcium 8.9 Total Bilirubin 1.7 H AST 21 ALT 12 Alkaline Phosphatase 81 Total Protein 5.9 L Albumin 2.9 L Blood Type Antibody Screen MTS Gel Crossmatch Bld Prod Order Comment Medications: Active Medications Generic Name Dose Route Start Last Admin Trade Name Freq PRN Reason Stop Dose Admin Acetaminophen 650 mg 04/12/18 16:29 04/15/18 17:19 Tylenol PO 650 mg Q4H PRN Administration PRIOR TO BLOOD TRANSFUSIONS Albuterol 1 ampul 04/13/18 09:00 04/16/18 08:36 Duoneb Neb (Jennifer) NEB Not Given Q6HR ALT NEB JENNIFER Allopurinol 300 mg 04/13/18 17:15 04/15/18 08:50 Zyloprim PO 300 mg DAILY JENNIFER Administration Diphenhydramine HCl 25 mg 04/12/18 14:17 04/15/18 11:49 Benadryl PO 25 mg Q4H PRN Administration rash/itch Diphenhydramine HCl 25 mg 04/12/18 16:29 04/15/18 17:19 Benadryl PO 25 mg Q4H PRN Administration PRIOR TO BLOOD TRANSFUSIONS Eszopiclone 3 mg 04/12/18 21:00 04/15/18 21:45 Lunesta PO 3 mg HS PRN Administration insomnia Fluticasone Propionate 2 spray 04/13/18 09:00 04/15/18 11:14 Flonase Nasal [place] NASAL 2 spray DAILY JENNIFER Administration Heparin Sodium (Porcine) 250 unit 04/13/18 06:11 04/15/18 05:12 Heparin Central Flush IV.FLUSH 250 unit PRN PRN Administration Flush Infusapot Insulin Aspart 0 unit 04/13/18 17:00 04/15/18 21:40 Novolog Insulin Suppl Scale Inj SQ 3 unit ACHS JENNIFER Administration Protocol Nicotine 1 patch 04/13/18 13:30 04/15/18 08:50 Habitrol 14 Mg Patch.24 Hr T-DERMAL 1 patch DAILY JENNIFER Administration Patch Removal 1 each 04/14/18 09:00 04/15/18 08:50 Remove Old Patch T-DERMAL 1 each DAILY JENNIFER Administration Sodium Chloride 2 ml 04/12/18 12:05 04/15/18 08:50 Ns Flush IV.FLUSH 2 ml PRN PRN Administration FLUSH AFTER USING IV ACCESS Sodium Chloride 5 ml 04/13/18 06:11 04/14/18 08:43 Ns Flush IV.FLUSH 5 ml PRN PRN Administration Flush Infusaport Objective Remarks: GENERAL: Well-nourished, well-developed, middle-aged male patient. Lying in bed , sleeping on approach. SKIN: Pale, warm and dry. Port accessed right chest wall-dressing dry/intact. Petechiae rash throughout right axilla and chest wall & bilateral nasal bridge. HEAD: Normocephalic. EYES: No scleral icterus. No injection or drainage. PERRLA. MOUTH: [place], dry mucous membranes. NECK: Supple, trachea midline. lymphadenopathy left supraclavicular. CARDIOVASCULAR: Regular rate and rhythm without murmurs. RESPIRATORY: Posterior breath sounds clear, equal bilaterally. No accessory muscle use. GASTROINTESTINAL: Abdomen soft, non-tender, nondistended. EXTREMITIES: No cyanosis, 1+ bilateral ankle edema. MUSCULOSKELETAL: Adequate muscle tone. NEUROLOGICAL: No obvious focal deficit. Awake, alert, and oriented x3. PSYCHIATRIC: Appropriate mood and affect; insight and judgment normal. Assessment/Plan - Plan Assessment: 1. Adverse reaction to Rituxan. He developed tachycardia, tachypnea, rigors, hypertension and hypoxia about an hour into the Rituxan infusion. He was given hydrocortisone and Demerol and his symptoms Resolved. He will continue Solu-Medrol until completion of Rituxan. Rechallenge with Rituxan on 04/14/2018, tolerated well. --04/16/18: Patient tolerated Rituxan well. Symptoms have resolved. 2. Mantle cell lymphoma with leukemic phase. He presented with constitutional symptom and noted to have diffuse adenopathy as he presented with white blood cell count more than 40,000. A bone marrow biopsy, and biopsy of left axillary lymph node showed mantle cell lymphoma. Peripheral smear showed scattered large cell, but that was not seen in the lymph node biopsy or bone marrow. He completed first cycle of bendamustine last week. He was given Rituxan as an outpatient, but developed adverse reaction as above. He was rechallenged with Rituxan on 04/14/2018 and tolerated it well. --04/16/18: Patient with questions regarding disease and disease progression. 3. Pancytopenia. Neutropenic precautions are in place. --04/16/18: Patient received 1 unit of platelets and 2 units of PRBCs yesterday. --Symptoms resolved. Platelet count has increased to 23 today and his hemoglobin is 8.4. 4. Edema. He developed lower extremity edema and scrotal edema. His recent echocardiogram showed ejection fraction of 55%. He will continue him on diuretic. --04/16/18: Bilateral LLE edema with some improvement. Continues on diuretics. 6. Hyperuricemia. Uric acid back to normal. --Continue him on allopurinol. 7. Mild renal insufficiency. His kidney function has improved. Plan: 1. Rechallenged with Rituxan. Reportedly tolerated well. 2. Continue allopurinol and diuretic. 3. Thrombocytopenia status post platelet transfusion yesterday. Patient now without symptoms. 4. Anemia status post transfusion of PRBC 2 units, yesterday. Hemoglobin has trended up to 8.4. 5. Continue to monitor for bleeding. We will repeat CBC in the a.m. - Attending Statement The exam, history, and the medical decision-making described in the above note were completed with the assistance of the mid-level provider. I reviewed and agree with the findings presented. I attest that I had a [id number] encounter with the patient on the same day, and personally performed and documented my assessment and findings in the medical record. Patient seen and examined in AM. He reports more shortness of breath. He seems to have more labored breathing. CT angiogram was performed. There is no evidence of pulmonary embolism. There is concern of worsening adenopathy. Patient has high risk disease with a leukemic phase of mantle cell lymphoma. He had just received bendamustine a week ago. He still has cytopenias associated with the bendamustine. He had great difficulty tolerating the rituximab. There is no option to start a new chemo regimen until he recovers. If the CT scan of the chest suggest true progression then his prognosis is quite poor. In the meantime will treat him in case that some of this adenopathy worsening is reactive in nature. He seems to have responded to the steroids from earlier on in the week. Case was discussed with Dr. Sanchez. Continue plans for diuresis.
[2018-04-16] MEDS: Allopurinol 300 MG Tablet PO SCH (09:26)
[2018-04-16] MEDS: Insulin NovoLOG Aspart Correctional Sugar Inj SQ SCH ×4 (11:25→20:02)
--- NOTE | 2018-04-16 11:41 | CT ---
EXAM DATE: 04/16/2018 11:21 AM EDT AGE/SEX: 57 years / Male INDICATIONS: Shortness of breath. CLINICAL DATA: This is the patient's initial encounter. Patient reports that signs and symptoms have been present for 1 day and indicates a pain score of 0/10. MEDICAL/SURGICAL HISTORY: Lymphoma. Diabetes. . Right power port. RADIATION DOSE: 10.66 CTDI (mGy) [place] [facility] [place]. [place], CHEST SINGLE AP, 03/27/2018. [facility] [place]23/[place]. . TECHNIQUE: Volumetric scanning was performed using a multi-row detector CT scanner during bolus infu elina of 80 ml Omnipaque 350 (iohexol) nonionic water-soluble contrast as a single exam dose. The sandra a was post processed with a variety of visualization algorithms including full volume maximum intensi ty projection and sliding thin slab reformation. Using automated exposure control and adjustment of t he mA and/or kV according to patient size, radiation dose was kept as low as reasonably achievable to obtain optimal diagnostic quality images. DICOM format image data is available electronically for r eview and comparison. FINDINGS: Pulmonary Arteries: No filling defects are seen in the pulmonary arteries out to the subsegmental ve ssels. The left and right pulmonary arteries are normal in diameter. Lung: There are new areas of groundglass opacity with thickening of the adjacent interstitium identi fied within the right and left upper lobes and new airspace consolidation involving the left lower lo be. Effusion: New small left-sided pleural effusion. Mediastinum: There has been significant worsening of the mediastinal adenopathy as well as the axill alirio adenopathy with large bulky lymph nodes present within the AP window, chalo and right paratrache al region. The trachea is normal in caliber. Other: Progressive extensive bilateral bulky adenopathy.The soft tissues of the thorax are significa nt for interval progressive nodularity and hazy density of the subcutaneous soft tissues. CONCLUSION: 1. Significant worsening of the exam with extensive progressive bulky adenopathy identified both wit hin the mediastinum as well as the bilateral axilla. There is progressive nodular density involving t he subcutaneous fatty tissues throughout the thorax concerning for additional sites of metastatic dis ease. 2. New areas of groundglass opacity with adjacent interstitial thickening within the right and left upper lobes. This may reflect lymphangitic spread of disease versus new infection. There is a new sma ll left-sided pleural effusion. 3. No evidence of PE. Electronically signed by: Beth Woodruff MD 04/16/2018 11:39 AM EDT
[2018-04-16] MEDS: MethylPREDNISolone Sod Succinate Inj 40 MG/ML Vial IV.PUSH SCH (20:00)
[2018-04-17 06:15] LABS: Hematocrit 26.9 % (39.0-51.0); Mean Corpuscular HGB Conc 33.5 % (32.0-36.0); Mean Corpuscular Hemoglobin 32.9 pg (27.0-34.0); Mean Corpuscular Volume 98.3 fL (80.0-100.0); Mean Platelet Volume 8.6 fL (7.0-11.0); Platelet Count 24 th/mm3 (150-450); Red Blood Count 2.74 mil/mm3 (4.50-5.90); Red Cell Distribution Width 21.2 % (11.6-17.2); White Blood Count 7.4 th/mm3 (4.0-11.0)
[2018-04-17 06:30] LABS: Anion Gap 11 meq/L (5-15); Blood Urea Nitrogen 30 mg/dL (7-18); Calcium 8.5 mg/dL (8.5-10.1); Carbon Dioxide 28.3 meq/L (21.0-32.0); Chloride 102 meq/L (98-107); Glomerular Filtration Rate Greater Than 89 mL/min (>89); Glucose,Random 135 mg/dL (74-106); Potassium 4.2 meq/L (3.5-5.1); Sodium 141 meq/L (136-145)
--- NOTE | 2018-04-17 08:11 | P.PNIM ---
Subjective Interval history: swelling in legs/scrotum a little better has been more sob Physical Exam Vital signs: Vital Signs 04/16/18 12:14 04/16/18 16:00 04/16/18 17:37 Temperature 97.8 F 98.7 F Pulse Rate 106 H 70 Respiratory Rate 20 16 14 Blood Pressure 124/79 135/87 Pulse Oximetry 95 04/16/18 20:00 04/16/18 21:48 04/17/18 00:00 Temperature 98.2 F 98.7 F Pulse Rate 110 H 104 H 111 H Respiratory Rate 17 18 16 Blood Pressure 140/80 157/89 H Pulse Oximetry 94 L 96 93 L 04/17/18 04:00 04/17/18 07:19 04/17/18 08:00 Temperature 97.8 F 98.3 F Pulse Rate 108 H 114 H 102 H Respiratory Rate 18 16 24 Blood Pressure 143/80 H Pulse Oximetry 94 L 98 92 L Intake & Output 04/16/18 04/17/18 04/17/18 18:59 06:59 18:59 Intake Total 1500 / 1500 960 / 960 Output Total 1000 / 1000 425 / 425 Balance 500 / 500 535 / 535 Weight 98.3 kg Intake: IV 200 / 200 Oral 1300 / 1300 960 / 960 Output: Urine 1000 / 1000 425 / 425 Other: # Voids 2 Date of Last Bowel Movement 04/15/18 heart rg lung course bs ant abd s/nt ext scrotum/le [id number] Results - Labs CBC & Chem 7: 04/17/18 05:20 04/17/18 05:20 Laboratory Results - last 24 hr 04/16/18 04/16/18 04/16/18 04:16 12:52 17:10 WBC RBC Hgb Hct MCV MCH MCHC RDW Plt Count MPV Prelim Diff (Auto) WBC Differential Manual diff final Seg Neuts % (Manual) 3 L Band Neuts % (Manual) 1 Lymphocytes % (Manual) 92 H Monocytes % (Manual) 3 Myelocytes % (Man) 1 H Abs Neuts (Manual) 0.3 L* Differential Comment Platelet Estimate Low L Platelet Morphology Normal Ovalocytes 1+ H Sodium Potassium Chloride Carbon Dioxide Anion Gap BUN Creatinine Estimated GFR POC Glucose 104 119 H Random Glucose Calcium 04/16/18 04/17/18 04/17/18 19:55 05:20 05:20 WBC 7.4 RBC 2.74 L Hgb 9.0 L Hct 26.9 L MCV 98.3 MCH 32.9 MCHC 33.5 RDW 21.2 H D Plt Count 24 L MPV 8.6 Prelim Diff (Auto) Slide review pending WBC Differential Seg Neuts % (Manual) Band Neuts % (Manual) Lymphocytes % (Manual) Monocytes % (Manual) Myelocytes % (Man) Abs Neuts (Manual) Differential Comment . Platelet Estimate Platelet Morphology Ovalocytes Sodium 141 Potassium 4.2 Chloride 102 Carbon Dioxide 28.3 Anion Gap 11 BUN 30 H Creatinine 0.83 Estimated GFR Greater than 89 POC Glucose 111 H Random Glucose 135 H Calcium 8.5 - Imaging Impressions Chest CTA 04/16/18 00:00 CONCLUSION: 1. Significant worsening of the exam with extensive progressive bulky adenopathy identified both within the mediastinum as well as the bilateral axilla. There is progressive nodular density involving the subcutaneous fatty tissues throughout the thorax concerning for additional sites of metastatic disease. 2. New areas of groundglass opacity with adjacent interstitial thickening within the right and left upper lobes. This may reflect lymphangitic spread of disease versus new infection. There is a new small left-sided pleural effusion. 3. No evidence of PE. Assessment and Plan - Assessment (1) Anaphylactic reaction Code(s): T78.2XXA - Anaphylactic shock, unspecified, initial encounter Plan: 1. Mantle cell lymphoma. 03/23 CT abdomen/pelvis: 1. Markedly splenomegaly. 2. Prominent abdominal adenopathy including prominent groin adenopathy greater on the right. 3. Low-density lesion in the liver is nonspecific and measures 2.5 cm. 03/23 CT chest 1. Prominent axillary and mediastinal adenopathy. Lymphoma/leukemia should be excluded. 2. No infiltrate or mass. 03/24. Bone marrow biopsy 03/25 Left axillary node biopsy with u/s 04/01 IR.....1.implanted central venous port catheter placement. An 8 [employer] port was placed. 04/16 CTA chest: 1. Significant worsening of the exam with extensive progressive bulky adenopathy identified both within the mediastinum as well as the bilateral axilla. There is progressive nodular density involving the subcutaneous fatty tissues throughout the thorax concerning for additional sites of metastatic disease. 2. New areas of groundglass opacity with adjacent interstitial thickening within the right and left upper lobes. This may reflect lymphangitic spread of disease versus new infection. There is a new small left-sided pleural effusion. 3. No evidence of PE. oncology rechallenged pt with rituximab. pt did well. 2 prbc transfusion and 1 plts per oncology 04/15 Pt persists with sob and some edema. CTA shows progression of bulky lymphadenopathy and possible new mets. also ground glass upper lobes porter. ?lymphangitic spread, ?edema, ?related to the allergic reaction to rituximab. ?infection. he described dysphagia on admission but apparently passed swallow eval. Will discuss with oncology. They have resumed the iv steroids. I will cont iv lasix and monitor bmp. 2. anaphylaxis to Rituximab - Pt sent to ED today for anaphylaxis to Rituximab. Rash on back/neck, sob/hypoxia, hypotension. Improved with steroids/benadryl 3. 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 pt describing dysphagia to certain foods dvt prophylaxis. (2) Mantle cell lymphoma Code(s): C83.10 - Mantle cell lymphoma, unspecified site Status: Acute
[2018-04-17] MEDS: Insulin NovoLOG Aspart Correctional Sugar Inj SQ SCH ×4 (09:14→21:07)
[2018-04-17 09:41] LABS: Monocytes 1 % (0-8)
[2018-04-17 09:42] LABS: Ovalocytes 1+; Platelet Morphology Normal (Normal)
[2018-04-17 09:43] LABS: Lymphocytes 95 % (9-44)
[2018-04-17] MEDS: MethylPREDNISolone Sod Succinate Inj 40 MG/ML Vial IV.PUSH SCH ×2 (09:47→21:08)
[2018-04-17] MEDS: Allopurinol 300 MG Tablet PO SCH (09:47)
--- NOTE | 2018-04-17 09:52 | P.PNONC ---
Subjective Interval history: Afebrile overnight. Patient sitting on the side of the bed, eating breakfast. His daughter is visiting. Patient reports that he is feeling better, still feels slightly short of breath but improved from yesterday. He has no new complaints at this time. He denies any pain, bleeding or N/V/D. We have discussed his CTA results and all questions have been answered. Objective Vital Signs/Intake & Output: Vital Signs 04/16/18 12:14 04/16/18 16:00 04/16/18 17:37 Temperature 97.8 F 98.7 F Pulse Rate 106 H 70 Respiratory Rate 20 16 14 Blood Pressure 124/79 135/87 Pulse Oximetry 95 04/16/18 20:00 04/16/18 21:48 04/17/18 00:00 Temperature 98.2 F 98.7 F Pulse Rate 110 H 104 H 111 H Respiratory Rate 17 18 16 Blood Pressure 140/80 157/89 H Pulse Oximetry 94 L 96 93 L 04/17/18 04:00 04/17/18 07:19 04/17/18 08:00 Temperature 97.8 F 98.3 F Pulse Rate 108 H 114 H 102 H Respiratory Rate 18 16 24 Blood Pressure 143/80 H Pulse Oximetry 94 L 98 92 L Intake & Output 04/16/18 04/17/18 04/17/18 18:59 06:59 18:59 Intake Total 1500 / 1500 960 / 960 Output Total 1000 / 1000 425 / 425 Balance 500 / 500 535 / 535 Weight 98.3 kg Intake: IV 200 / 200 Oral 1300 / 1300 960 / 960 Output: Urine 1000 / 1000 425 / 425 Other: # Voids 2 Date of Last Bowel Movement 04/15/18 Result Diagrams: 04/17/18 05:20 04/17/18 05:20 Laboratory Results: Laboratory Results - last 24 hr 04/16/18 04/16/18 04/16/18 12:52 17:10 19:55 WBC RBC Hgb Hct MCV MCH MCHC RDW Plt Count MPV Prelim Diff (Auto) Differential Comment Sodium Potassium Chloride Carbon Dioxide Anion Gap BUN Creatinine Estimated GFR POC Glucose 104 119 H 111 H Random Glucose Calcium 04/17/18 04/17/18 04/17/18 05:20 05:20 07:58 WBC 7.4 RBC 2.74 L Hgb 9.0 L Hct 26.9 L MCV 98.3 MCH 32.9 MCHC 33.5 RDW 21.2 H D Plt Count 24 L MPV 8.6 Prelim Diff (Auto) Slide review pending Differential Comment . Sodium 141 Potassium 4.2 Chloride 102 Carbon Dioxide 28.3 Anion Gap 11 BUN 30 H Creatinine 0.83 Estimated GFR Greater than 89 POC Glucose 133 H Random Glucose 135 H Calcium 8.5 Imaging Studies: Impressions Chest CTA 04/16/18 00:00 CONCLUSION: 1. Significant worsening of the exam with extensive progressive bulky adenopathy identified both within the mediastinum as well as the bilateral axilla. There is progressive nodular density involving the subcutaneous fatty tissues throughout the thorax concerning for additional sites of metastatic disease. 2. New areas of groundglass opacity with adjacent interstitial thickening within the right and left upper lobes. This may reflect lymphangitic spread of disease versus new infection. There is a new small left-sided pleural effusion. 3. No evidence of PE. Medications: Active Medications Generic Name Dose Route Start Last Admin Trade Name Freq PRN Reason Stop Dose Admin Acetaminophen 650 mg 04/12/18 16:29 04/15/18 17:19 Tylenol PO 650 mg Q4H PRN Administration PRIOR TO BLOOD TRANSFUSIONS Allopurinol 300 mg 04/13/18 17:15 04/16/18 09:26 Zyloprim PO 300 mg DAILY SHERLY Administration Diphenhydramine HCl 25 mg 04/12/18 14:17 04/15/18 11:49 Benadryl PO 25 mg Q4H PRN Administration rash/itch Diphenhydramine HCl 25 mg 04/12/18 16:29 04/15/18 17:19 Benadryl PO 25 mg Q4H PRN Administration PRIOR TO BLOOD TRANSFUSIONS Eszopiclone 3 mg 04/12/18 21:00 04/16/18 23:00 Lunesta PO 3 mg HS PRN Administration insomnia Fluticasone Propionate 2 spray 04/13/18 09:00 04/17/18 09:15 Flonase Nasal [place] NASAL Not Given DAILY SHERLY Heparin Sodium (Porcine) 250 unit 04/13/18 06:11 04/15/18 05:12 Heparin Central Flush IV.FLUSH 250 unit PRN PRN Administration Flush Infusapot Insulin Aspart 0 unit 04/13/18 17:00 04/17/18 09:14 Novolog Insulin Suppl Scale Inj SQ Not Given ACHS [facility] Protocol Methylprednisolone Sodium Succinate 40 mg 04/16/18 21:00 04/16/18 20:00 Solumedrol Inj IV.PUSH 40 mg Q12HR SHERLY Administration Nicotine 1 patch 04/13/18 13:30 04/16/18 09:26 Habitrol 14 Mg Patch.24 Hr T-DERMAL 1 patch DAILY SHERLY Administration Patch Removal 1 each 04/14/18 09:00 04/16/18 09:29 Remove Old Patch T-DERMAL 1 each DAILY SHERLY Administration Sodium Chloride 2 ml 04/12/18 12:05 04/16/18 09:30 Ns Flush IV.FLUSH 2 ml PRN PRN Administration FLUSH AFTER USING IV ACCESS Sodium Chloride 5 ml 04/13/18 06:11 04/14/18 08:43 Ns Flush IV.FLUSH 5 ml PRN PRN Administration Flush Infusaport Objective Remarks: GENERAL: Well-nourished, well-developed, middle-aged male patient. Sitting at bedside eating breakfast. SKIN: warm and dry. Port accessed right chest wall-dressing dry/intact. Petechiae rash throughout right axilla and chest wall & bilateral nasal bridge- unchanged. HEAD: Normocephalic. EYES: No scleral icterus. No injection or drainage. PERRLA. MOUTH: [place], dry mucous membranes. NECK: Supple, trachea midline. lymphadenopathy left supraclavicular. CARDIOVASCULAR: Regular rate and rhythm without murmurs. RESPIRATORY: Posterior breath sounds clear, equal bilaterally. No accessory muscle use. GASTROINTESTINAL: Abdomen non-tender, nondistended. EXTREMITIES: No cyanosis, 1+ bilateral ankle edema. MUSCULOSKELETAL: Adequate muscle tone. NEUROLOGICAL: No obvious focal deficit. Awake, alert, and oriented x3. PSYCHIATRIC: Appropriate mood and affect; insight and judgment normal. Assessment/Plan - Plan Assessment: 1. Adverse reaction to Rituxan. He developed tachycardia, tachypnea, rigors, hypertension and hypoxia about an hour into the Rituxan infusion. He was given hydrocortisone and Demerol and his symptoms Resolved. He will continue Solu-Medrol until completion of Rituxan. Rechallenge with Rituxan on 04/14/2018, tolerated well. --04/16/18: Patient tolerated Rituxan well. Symptoms have resolved. --04/17/18: Continue to monitor. Patient with questions about future treatments. These questions have been deferred to his oncologist, Dr. Shell. 2. Mantle cell lymphoma with leukemic phase. He presented with constitutional symptom and noted to have diffuse adenopathy as he presented with white blood cell count more than 40,000. A bone marrow biopsy, and biopsy of left axillary lymph node showed mantle cell lymphoma. Peripheral smear showed scattered large cell, but that was not seen in the lymph node biopsy or bone marrow. He completed first cycle of bendamustine last week. He was given Rituxan as an outpatient, but developed adverse reaction as above. He was rechallenged with Rituxan on 04/14/2018 and tolerated it well. --04/16/18: Patient with questions regarding disease and disease progression. --04/17/18: CTA completed yesterday, for tachypnea & shortness of breath. It was negative for PE, however did show worsening extensive progressive bulky adenopathy identified both within the mediastinum as well as the bilateral axilla. Progressive nodular density involving the subcutaneous fatty tissues throughout the thorax concerning for additional sites of metastatic disease and new areas of groundglass opacity with adjacent interstitial thickening within the right and left upper lobes which may reflect lymphangitic spread of disease versus new infection. There is a new small left-sided pleural effusion. Steroids have been started. Unknown whether this is true disease progression or just inflammatory changes related to chemotherapy. --Symptoms have improved. --Continue SoluMedrol --Discussed these findings with patient and his family. --We will continue to monitor. 3. Pancytopenia. Neutropenic precautions are in place. --04/16/18: Patient received 1 unit of platelets and 2 units of PRBCs yesterday. --Symptoms resolved. Platelet count has increased to 23 today and his hemoglobin is 8.4. --04/17/18: H&H stable today. Hemoglobin 9.0, platelet count 20 4K. Symptoms have resolved we will continue to monitor. 4. Edema. He developed lower extremity edema and scrotal edema. His recent echocardiogram showed ejection fraction of 55%. He will continue him on diuretic. --04/16/18: Bilateral LLE edema with some improvement. Continues on diuretics. --04/17/18: 1+ bilateral extremity edema noted on exam. Continue diuretics. 6. Hyperuricemia. Uric acid back to normal. --Continue him on allopurinol. 7. Mild renal insufficiency. His kidney function has improved. --Kidney function continues to improve. We will continue to monitor. Plan: 1. Continue Solu-Medrol 40 mg IV twice daily. 2. Continue allopurinol and diuretic. 3. Thrombocytopenia status post platelet transfusion on 04/15/2018. Patient now without symptoms. 4. Anemia status post transfusion of PRBC 2 units on 04/15/2018. Hemoglobin has continued to trend up, now 9.0. 5. Continue to monitor for bleeding. We will repeat CBC in the a.m. - Attending Statement The exam, history, and the medical decision-making described in the above note were completed with the assistance of the mid-level provider. I reviewed and agree with the findings presented. I attest that I had a [id number] encounter with the patient on the same day, and personally performed and documented my assessment and findings in the medical record. Patient reports feeling better with the start of Solu-Medrol. He still is short of breath. He has relief from the respiratory treatment. We discussed increasing the respiratory treatments and providing it as needed. I had a lengthy discussion and family meeting with patient and his children. We discussed the concern for lack of significant response. 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 There is enlarging adenopathy in the CT angiogram which may represent inflammation however we also considered possibility of primary refractory disease. In the meantime he is cytopenic related to the bendamustine and Rituxan therapy. There are many questions were answered to her satisfaction. I have encouraged him to discuss the above with Dr. Suleman jackson in the next course. He would like to eventually depend on his ability to recover from his bendamustine and find a chemo regiment where he would respond. Support hose may be helpful. Diuretic therapy continue. Lorazepam is offered for anxiety and tremors/agitation particularly with the Solu-Medrol.
[2018-04-17] MEDS ORDERED: LORazepam 0.5 MG Tablet PO PRN (12:15)
[2018-04-18 05:22] LABS: Hematocrit 26.7 % (39.0-51.0); Hemoglobin 8.9 gm/dL (13.0-17.0); Mean Corpuscular HGB Conc 33.1 % (32.0-36.0); Mean Corpuscular Volume 99.6 fL (80.0-100.0); Mean Platelet Volume 7.4 fL (7.0-11.0); Platelet Count 31 th/mm3 (150-450); Red Blood Count 2.68 mil/mm3 (4.50-5.90); Red Cell Distribution Width 23.4 % (11.6-17.2); White Blood Count 13.4 th/mm3 (4.0-11.0)
[2018-04-18 05:34] LABS: Calcium 8.6 mg/dL (8.5-10.1); Carbon Dioxide 26.4 meq/L (21.0-32.0); Potassium 4.1 meq/L (3.5-5.1)
[2018-04-18 07:16] LABS: Eosinophils 1 % (0-4); Lymphocytes 96 % (9-44); Metamyelocytes 1 % (0-1)
[2018-04-18 07:17] LABS: Platelet Morphology Normal (Normal)
[2018-04-18] MEDS: Insulin NovoLOG Aspart Correctional Sugar Inj SQ SCH ×4 (08:16→20:09)
[2018-04-18] MEDS: Heparin Central Flush 100 UNIT/ML 5 ML Vial IV.FLUSH PRN (08:42)
[2018-04-18] MEDS: Allopurinol 300 MG Tablet PO SCH (08:42)
[2018-04-18] MEDS: MethylPREDNISolone Sod Succinate Inj 40 MG/ML Vial IV.PUSH SCH (08:42)
--- NOTE | 2018-04-18 10:22 | P.PNONC ---
Subjective Interval history: Patient resting comfortably in bed, in no distress. He reports that his dyspnea is improving and he denies any bleeding. Objective Vital Signs/Intake & Output: Vital Signs 04/17/18 11:13 04/17/18 12:37 04/17/18 12:48 Temperature Pulse Rate 110 H 112 H 111 H Respiratory Rate 20 16 Blood Pressure 139/85 Pulse Oximetry 98 97 04/17/18 12:52 04/17/18 16:00 04/17/18 20:00 Temperature 98.3 F 97.9 F Pulse Rate 108 H 109 H 105 H Respiratory Rate 22 18 Blood Pressure 138/83 136/85 Pulse Oximetry 97 04/17/18 21:34 04/18/18 00:00 04/18/18 04:00 Temperature 97.5 F L 98.2 F Pulse Rate 106 H 112 H 100 H Respiratory Rate 24 18 18 Blood Pressure 136/83 137/76 Pulse Oximetry 95 93 L 97 04/18/18 07:00 04/18/18 07:55 Temperature 98.6 F Pulse Rate 101 H 97 H Respiratory Rate 18 Blood Pressure 140/96 H Pulse Oximetry 94 L Intake & Output 04/17/18 04/18/18 04/18/18 18:59 06:59 18:59 Intake Total 1560 / 1560 480 / 480 Output Total 1650 / 1650 550 / 550 Balance -90 / -90 -70 / -70 Weight 98.3 kg Intake: Oral 1560 / 1560 480 / 480 Output: Urine 1650 / 1650 550 / 550 Other: Date of Last Bowel Movement 04/17/18 04/17/18 04/17/18 # Bowel Movements 3 Result Diagrams: 04/18/18 04:48 04/18/18 04:48 Laboratory Results: Laboratory Results - last 24 hr 04/17/18 04/17/18 04/17/18 12:19 16:12 21:06 WBC RBC Hgb Hct MCV MCH MCHC RDW Plt Count MPV Prelim Diff (Auto) WBC Differential Band Neuts % (Manual) Lymphocytes % (Manual) Eosinophils % (Manual) Metamyelocytes % (Man) Abs Neuts (Manual) Differential Comment Platelet Estimate Platelet Morphology Sodium Potassium Chloride Carbon Dioxide Anion Gap BUN Creatinine Estimated GFR POC Glucose 177 H 251 H 163 H Random Glucose Calcium 04/18/18 04/18/18 04/18/18 04:48 04:48 07:57 WBC 13.4 H D RBC 2.68 L Hgb 8.9 L Hct 26.7 L MCV 99.6 MCH 33.0 MCHC 33.1 RDW 23.4 H Plt Count 31 L MPV 7.4 Prelim Diff (Auto) Manual diff required WBC Differential Manual diff final Band Neuts % (Manual) 2 Lymphocytes % (Manual) 96 H Eosinophils % (Manual) 1 Metamyelocytes % (Man) 1 Abs Neuts (Manual) 0.4 L* Differential Comment . Platelet Estimate Low L Platelet Morphology Normal Sodium 141 Potassium 4.1 Chloride 101 Carbon Dioxide 26.4 Anion Gap 14 BUN 28 H Creatinine 0.96 Estimated GFR 80 L POC Glucose 148 H Random Glucose 152 H Calcium 8.6 Medications: Active Medications Generic Name Dose Route Start Last Admin Trade Name Freq PRN Reason Stop Dose Admin Acetaminophen 650 mg 04/12/18 16:29 04/15/18 17:19 Tylenol PO 650 mg Q4H PRN Administration PRIOR TO BLOOD TRANSFUSIONS Albuterol 1.25 mg 04/17/18 13:13 04/17/18 21:34 Albuterol Neb (Prn) NEB 1.25 mg Q2HR NEB PRN Administration SHORTNESS OF BREATH Allopurinol 300 mg 04/13/18 17:15 04/18/18 08:42 Zyloprim PO 300 mg DAILY SHERLY Administration Diphenhydramine HCl 25 mg 04/12/18 14:17 04/15/18 11:49 Benadryl PO 25 mg Q4H PRN Administration rash/itch Diphenhydramine HCl 25 mg 04/12/18 16:29 04/15/18 17:19 Benadryl PO 25 mg Q4H PRN Administration PRIOR TO BLOOD TRANSFUSIONS Eszopiclone 3 mg 04/12/18 21:00 04/17/18 21:11 Lunesta PO 3 mg HS PRN Administration insomnia Fluticasone Propionate 2 spray 04/13/18 09:00 04/18/18 08:49 Flonase Nasal [place] NASAL Not Given DAILY SHERLY Furosemide 40 mg 04/17/18 09:00 04/18/18 08:42 Lasix Inj IV.PUSH 40 mg BID@0900,1800 SHERLY Administration Heparin Sodium (Porcine) 250 unit 04/13/18 06:11 04/18/18 08:42 Heparin Central Flush IV.FLUSH 250 unit PRN PRN Administration Flush Infusapot Insulin Aspart 0 unit 04/13/18 17:00 04/18/18 08:16 Novolog Insulin Suppl Scale Inj SQ Not Given ACHS [facility] Protocol Nicotine 1 patch 04/13/18 13:30 04/18/18 08:42 Habitrol 14 Mg Patch.24 Hr T-DERMAL 1 patch DAILY SHERLY Administration Patch Removal 1 each 04/14/18 09:00 04/18/18 08:43 Remove Old Patch T-DERMAL 1 each DAILY SHERLY Administration Sodium Chloride 2 ml 04/12/18 12:05 04/16/18 09:30 Ns Flush IV.FLUSH 2 ml PRN PRN Administration FLUSH AFTER USING IV ACCESS Sodium Chloride 5 ml 04/13/18 06:11 04/14/18 08:43 Ns Flush IV.FLUSH 5 ml PRN PRN Administration Flush Infusaport Objective Remarks: GENERAL: Well-nourished, well-developed, middle-aged male patient. SKIN: warm and dry. Port accessed right chest wall-dressing dry/intact. Petechiae rash throughout right axilla and chest wall & bilateral nasal bridge- color stages of healing. HEAD: Normocephalic. EYES: No scleral icterus. No injection or drainage. PERRLA. MOUTH: [place], moist mucous membranes. NECK: Supple, trachea midline. lymphadenopathy left supraclavicular. CARDIOVASCULAR: Regular rate and rhythm without murmurs. RESPIRATORY: Posterior breath sounds clear, equal bilaterally. No accessory muscle use. GASTROINTESTINAL: Abdomen with suprapubic tenderness with palpation, nondistended. EXTREMITIES: No cyanosis, 1+ bilateral ankle edema. MUSCULOSKELETAL: Adequate muscle tone. NEUROLOGICAL: No obvious focal deficit. Awake, alert, and oriented x3. PSYCHIATRIC: Appropriate mood and affect; insight and judgment normal. Assessment/Plan (1) Adverse reaction to drug Code(s): T50.905A - Adverse effect of unspecified drugs, medicaments and biological substances, initial encounter Status: Acute (2) Symptomatic anemia Code(s): D64.9 - Anemia, unspecified Status: Acute (3) Mantle cell lymphoma Code(s): C83.10 - Mantle cell lymphoma, unspecified site Status: Acute - Plan Assessment: 1. Adverse reaction to Rituxan. He developed tachycardia, tachypnea, rigors, hypertension and hypoxia about an hour into the Rituxan infusion. He was given hydrocortisone and Demerol and his symptoms Resolved. He will continue Solu-Medrol until completion of Rituxan. Rechallenge with Rituxan on 04/14/2018, tolerated well. --04/16/18: Patient tolerated Rituxan well. Symptoms have resolved. --04/17/18: Continue to monitor. Patient with questions about future treatments. These questions have been deferred to his oncologist, Dr. Shell. --04/18/18: Treatment plan discussed. 2. Mantle cell lymphoma with leukemic phase. He presented with constitutional symptom and noted to have diffuse adenopathy as he presented with white blood cell count more than 40,000. A bone marrow biopsy, and biopsy of left axillary lymph node showed mantle cell lymphoma. Peripheral smear showed scattered large cell, but that was not seen in the lymph node biopsy or bone marrow. He completed first cycle of bendamustine last week. He was given Rituxan as an outpatient, but developed adverse reaction as above. He was rechallenged with Rituxan on 04/14/2018 and tolerated it well. --04/16/18: Patient with questions regarding disease and disease progression. --04/17/18: CTA completed yesterday, for tachypnea & shortness of breath. It was negative for PE, however did show worsening extensive progressive bulky adenopathy identified both within the mediastinum as well as the bilateral axilla. Progressive nodular density involving the subcutaneous fatty tissues throughout the thorax concerning for additional sites of metastatic disease and new areas of groundglass opacity with adjacent interstitial thickening within the right and left upper lobes which may reflect lymphangitic spread of disease versus new infection. There is a new small left-sided pleural effusion. Steroids have been started. Unknown whether this is true disease progression or just inflammatory changes related to chemotherapy. 04/18/18: --Symptoms have improved. --Solu-Medrol changed to oral prednisone. --We will continue to monitor. 3. Pancytopenia. Neutropenic precautions are in place. Status post 1 unit platelets and 2 units PRBCs on 04/15/2018. --04/18/18: H&H continues to stabilize today. Hemoglobin 8.9, platelet count 31K , WBC 13.4, absolute neutrophils 0.4. 4. Edema. He developed lower extremity edema and scrotal edema. His recent echocardiogram showed ejection fraction of 55%. Continues on diuretics. --04/18/18: Apply SVETLANA castro, continue sequential at nightly. Patient encouraged to continue to walk around the room ad tevin. 6. Hyperuricemia. Uric acid back to normal. --Continue him on allopurinol. 7. Mild renal insufficiency. His kidney function has improved. --Kidney function continues to improve. We will continue to monitor. Plan: 1. DC Solu-Medrol and start prednisone 40 mg p.o. twice daily.. 2. Continue allopurinol and diuretic. 3. Thrombocytopenia status post platelet transfusion on 04/15/2018. Platelet count continues to increase, continue to monitor. 4. Anemia status post transfusion of PRBC 2 units on 04/15/2018. Hemoglobin has stabilized at 8.9. We will continue to monitor. 5. Continue to monitor for bleeding. We will repeat CBC in the a.m. 6. Tenderness with palpation in his suprapubic area, we will obtain a urinalysis. - Attending Statement The exam, history, and the medical decision-making described in the above note were completed with the assistance of the mid-level provider. I reviewed and agree with the findings presented. I attest that I had a [id number] encounter with the patient on the same day, and personally performed and documented my assessment and findings in the medical record. SOB improved. Edema has improved. Discussed CT findings with pt. He does not appear to respond to bendamustine very well. Plan to switch chemo when his counts improved. Continue diuresis. Switch to prednisone and possible d/c tomorrow if stable. (1) Adverse reaction to drug Qualifiers: Encounter type: initial encounter Qualified Code(s): T50.905A - Adverse effect of unspecified drugs, medicaments and biological substances, initial encounter
[2018-04-18 12:00] LABS: Bilirubin,Urine Negative (Negative); Clarity,Urine Clear (Clear); Color,Urine Straw (Yellw/Straw); Glucose,Urine (UA) Negative (Negative); Leukocyte Esterase,Urine Negative (Negative); Nitrite,Urine Negative (Negative); Specific Gravity,Urine 1.008 (1.002-1.035); Urobilinogen,Urine 4 or Greater mg/dL (Less than 2)
--- NOTE | 2018-04-18 15:59 | P.PNIM ---
Subjective Interval history: No new complaints. Physical Exam Vital signs: Vital Signs 04/17/18 16:00 04/17/18 20:00 04/17/18 21:34 Temperature 98.3 F 97.9 F Pulse Rate 109 H 105 H 106 H Respiratory Rate 22 18 24 Blood Pressure 138/83 136/85 Pulse Oximetry 97 95 04/18/18 00:00 04/18/18 04:00 04/18/18 07:00 Temperature 97.5 F L 98.2 F Pulse Rate 112 H 100 H 101 H Respiratory Rate 18 18 Blood Pressure 136/83 137/76 Pulse Oximetry 93 L 97 04/18/18 07:55 04/18/18 11:00 04/18/18 11:18 Temperature 98.6 F 98.5 F Pulse Rate 97 H 110 H 106 H Respiratory Rate 18 20 Blood Pressure 140/96 H 140/83 Pulse Oximetry 94 L 96 04/18/18 15:23 Temperature 98.4 F Pulse Rate 107 H Respiratory Rate 18 Blood Pressure 140/89 Pulse Oximetry 95 Intake & Output 04/17/18 04/18/18 04/18/18 18:59 06:59 18:59 Intake Total 1560 / 1560 480 / 480 Output Total 1650 / 1650 550 / 550 Balance -90 / -90 -70 / -70 Weight 98.3 kg Intake: Oral 1560 / 1560 480 / 480 Output: Urine 1650 / 1650 550 / 550 Other: Date of Last Bowel Movement 04/17/18 04/17/18 04/17/18 # Bowel Movements 3 Narrative: GENERAL: This is a well-nourished, well-developed patient, in no apparent distress. CARDIOVASCULAR: Regular rate and rhythm without murmurs, gallops, or rubs. RESPIRATORY: Clear to auscultation. Breath sounds equal bilaterally. No wheezes , rales, or rhonchi. GASTROINTESTINAL: Abdomen soft, non-tender, nondistended. Normal active bowel sounds MUSCULOSKELETAL: Extremities without clubbing, cyanosis, or edema. NEURO: Alert & Oriented x4 to person, place, time, situation. Moves all ext x4 Results - Labs CBC & Chem 7: 04/19/18 04:30 04/19/18 04:30 - Imaging Chest X-Ray 04/12/18 12:05 CONCLUSION: 1. New mild platelike atelectasis in the left lung base. 2. Otherwise, the rest the lungs are grossly clear. Scrotum Ultrasound 04/12/18 13:01 CONCLUSION: Diffuse scrotal edema with small left hydrocele. Normal testicular flow without mass Venous Doppler Study 04/12/18 13:02 CONCLUSION: No evidence of deep venous thrombosis. Chest CTA 04/16/18 00:00 CONCLUSION: 1. Significant worsening of the exam with extensive progressive bulky adenopathy identified both within the mediastinum as well as the bilateral axilla. There is progressive nodular density involving the subcutaneous fatty tissues throughout the thorax concerning for additional sites of metastatic disease. 2. New areas of groundglass opacity with adjacent interstitial thickening within the right and left upper lobes. This may reflect lymphangitic spread of disease versus new infection. There is a new small left-sided pleural effusion. 3. No evidence of PE. Assessment and Plan - Assessment (1) Anaphylactic reaction Code(s): T78.2XXA - Anaphylactic shock, unspecified, initial encounter Plan: 1. Mantle cell lymphoma. 03/23 CT abdomen/pelvis: 1. Markedly splenomegaly. 2. Prominent abdominal adenopathy including prominent groin adenopathy greater on the right. 3. Low-density lesion in the liver is nonspecific and measures 2.5 cm. 03/23 CT chest 1. Prominent axillary and mediastinal adenopathy. Lymphoma/leukemia should be excluded. 2. No infiltrate or mass. 03/24. Bone marrow biopsy 03/25 Left axillary node biopsy with u/s 04/01 IR.....1.implanted central venous port catheter placement. An 8 [place] [employer] port was placed. 04/16 CTA chest: 1. Significant worsening of the exam with extensive progressive bulky adenopathy identified both within the mediastinum as well as the bilateral axilla. There is progressive nodular density involving the subcutaneous fatty tissues throughout the thorax concerning for additional sites of metastatic disease. 2. New areas of groundglass opacity with adjacent interstitial thickening within the right and left upper lobes. This may reflect lymphangitic spread of disease versus new infection. There is a new small left-sided pleural effusion. 3. No evidence of PE. oncology rechallenged pt with rituximab. pt did well. 2 prbc transfusion and 1 plts per oncology 04/15 Pt persists with sob and some edema. CTA shows progression of bulky lymphadenopathy and possible new mets. also ground glass upper lobes porter. ?lymphangitic spread, ?edema, ?related to the allergic reaction to rituximab. ?infection. he described dysphagia on admission but apparently passed swallow eval. - continue IV lasix - PO prednisone - Will d/w Oncology - observe Hg/plt counts 2. anaphylaxis to Rituximab - Pt sent to ED today for anaphylaxis to Rituximab. Rash on back/neck, sob/hypoxia, hypotension. Improved with steroids/benadryl 3. 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 pt describing dysphagia to certain foods dvt prophylaxis. (2) Mantle cell lymphoma Code(s): C83.10 - Mantle cell lymphoma, unspecified site Status: Acute
[2018-04-18] MEDS ORDERED: predniSONE 20 MG Tablet PO SCH (21:00)
[2018-04-19 06:03] LABS: Hematocrit 26.8 % (39.0-51.0); Hemoglobin 8.8 gm/dL (13.0-17.0); Mean Corpuscular HGB Conc 32.9 % (32.0-36.0); Mean Corpuscular Hemoglobin 32.9 pg (27.0-34.0); Mean Corpuscular Volume 99.7 fL (80.0-100.0); Mean Platelet Volume 7.6 fL (7.0-11.0); Platelet Count 45 th/mm3 (150-450); Red Blood Count 2.69 mil/mm3 (4.50-5.90); Red Cell Distribution Width 24.1 % (11.6-17.2); White Blood Count 17.9 th/mm3 (4.0-11.0)
[2018-04-19 06:21] LABS: Albumin 2.9 g/dL (3.4-5.0); Anion Gap 17 meq/L (5-15); Aspartate Aminotransferase 22 U/L (15-37); Blood Urea Nitrogen 31 mg/dL (7-18); Calcium 9.2 mg/dL (8.5-10.1); Carbon Dioxide 25.5 meq/L (21.0-32.0); Chloride 99 meq/L (98-107); Glomerular Filtration Rate 78 mL/min (>89); Glucose,Random 153 mg/dL (74-106); Sodium 141 meq/L (136-145)
[2018-04-19 06:23] LABS: Alanine Aminotransferase 19 U/L (12-78)
[2018-04-19 06:25] LABS: Alkaline Phosphatase 94 U/L (45-117)
[2018-04-19 07:29] LABS: Lymphocytes 100 % (9-44); Platelet Morphology Normal (Normal)
[2018-04-19] MEDS: Insulin NovoLOG Aspart Correctional Sugar Inj SQ SCH ×3 (07:42→17:20)
[2018-04-19] MEDS: Allopurinol 300 MG Tablet PO SCH (08:34)
[2018-04-19] MEDS ORDERED: predniSONE 20 MG Tablet PO SCH (09:00)
--- NOTE | 2018-04-19 11:05 | P.PNONC ---
Subjective Interval history: Pt sitting up at bedside, daughter is present. In no acute distress. He is eager to go home. Reports his breathing is improved. He does report discharge from both his eyes and in the lacrimal caruncle area if he touches them. He also describes a "scratchy feeling." He also c/o a mild sore throat this a.m. Objective Vital Signs/Intake & Output: Vital Signs 04/18/18 11:00 04/18/18 11:18 04/18/18 15:00 Temperature 98.5 F Pulse Rate 110 H 106 H 105 H Respiratory Rate 20 Blood Pressure 140/83 Pulse Oximetry 96 04/18/18 15:23 04/18/18 17:32 04/18/18 20:00 Temperature 98.4 F 98.2 F Pulse Rate 107 H 114 H 125 H Respiratory Rate 18 18 18 Blood Pressure 140/89 138/79 Pulse Oximetry 95 04/19/18 00:00 04/19/18 00:21 04/19/18 04:00 Temperature 97.8 F 97.5 F L Pulse Rate 106 H 116 H 93 H Respiratory Rate 20 18 Blood Pressure 144/84 H 120/73 Pulse Oximetry 93 L 94 L 04/19/18 08:45 Temperature Pulse Rate 106 H Respiratory Rate 24 Blood Pressure Pulse Oximetry Intake & Output 04/18/18 04/19/18 04/19/18 18:59 06:59 18:59 Intake Total 2040 / 2040 Output Total 1350 / 1350 Balance 690 / 690 -1 / -1 Weight 98.1 kg Intake: Oral 2039 / 2039 Output: Urine 1350 / 1350 Stool Other: # Voids 3 Date of Last Bowel Movement 04/18/18 04/18/18 # Bowel Movements 2 Result Diagrams: 04/19/18 04:30 04/19/18 04:30 Laboratory Results: Laboratory Results - last 24 hr 04/18/18 04/18/18 04/18/18 11:40 11:59 17:07 WBC RBC Hgb Hct MCV MCH MCHC RDW Plt Count MPV Prelim Diff (Auto) WBC Differential Lymphocytes % (Manual) Abs Neuts (Manual) Differential Comment Platelet Estimate Platelet Morphology Sodium Potassium Chloride Carbon Dioxide Anion Gap BUN Creatinine Estimated GFR POC Glucose 235 H 150 H Random Glucose Calcium Total Bilirubin AST ALT Alkaline Phosphatase Total Protein Albumin Urine Color Straw Urine Clarity Clear Urine pH 7.0 Ur Specific [place] 1.008 Urine Protein Negative Urine Glucose (UA) Negative Urine Ketones Negative Urine Occult Blood Negative Urine Nitrate Negative Urine Bilirubin Negative Urine Urobilinogen 4 or greater Ur Leukocyte Esterase Negative Urine RBC Less than 1 Urine WBC Less than 1 Micro UA Comment Culture not ind Urine Culture Comments Culture not ind 04/18/18 04/19/18 04/19/18 20:06 04:30 04:30 WBC 17.9 H RBC 2.69 L Hgb 8.8 L Hct 26.8 L MCV 99.7 MCH 32.9 MCHC 32.9 RDW 24.1 H Plt Count 45 L D MPV 7.6 Prelim Diff (Auto) Manual diff required WBC Differential Manual diff final Lymphocytes % (Manual) 100 H Abs Neuts (Manual) 0.0 L* Differential Comment . Platelet Estimate Low L Platelet Morphology Normal Sodium 141 Potassium 4.0 Chloride 99 Carbon Dioxide 25.5 Anion Gap 17 H BUN 31 H Creatinine 0.99 Estimated GFR 78 L POC Glucose 193 H Random Glucose 153 H Calcium 9.2 Total Bilirubin 1.6 H AST 22 ALT 19 Alkaline Phosphatase 94 Total Protein 6.0 L Albumin 2.9 L Urine Color Urine Clarity Urine pH Ur Specific [place] Urine Protein Urine Glucose (UA) Urine Ketones Urine Occult Blood Urine Nitrate Urine Bilirubin Urine Urobilinogen Ur Leukocyte Esterase Urine RBC Urine WBC Micro UA Comment Urine Culture Comments 04/19/18 07:36 WBC RBC Hgb Hct MCV MCH MCHC RDW Plt Count MPV Prelim Diff (Auto) WBC Differential Lymphocytes % (Manual) Abs Neuts (Manual) Differential Comment Platelet Estimate Platelet Morphology Sodium Potassium Chloride Carbon Dioxide Anion Gap BUN Creatinine Estimated GFR POC Glucose 137 H Random Glucose Calcium Total Bilirubin AST ALT Alkaline Phosphatase Total Protein Albumin Urine Color Urine Clarity Urine pH Ur Specific [place] Urine Protein Urine Glucose (UA) Urine Ketones Urine Occult Blood Urine Nitrate Urine Bilirubin Urine Urobilinogen Ur Leukocyte Esterase Urine RBC Urine WBC Micro UA Comment Urine Culture Comments Medications: Active Medications Generic Name Dose Route Start Last Admin Trade Name Freq PRN Reason Stop Dose Admin Acetaminophen 650 mg 04/12/18 16:29 04/15/18 17:19 Tylenol PO 650 mg Q4H PRN Administration PRIOR TO BLOOD TRANSFUSIONS Albuterol 1.25 mg 04/17/18 13:13 04/18/18 17:29 Albuterol Neb (Prn) NEB 1.25 mg Q2HR NEB PRN Administration SHORTNESS OF BREATH Albuterol 1 ampul 04/17/18 13:14 04/19/18 08:45 Duoneb Neb (Prn) NEB 1 ampul Q6HR NEB PRN Administration SHORTNESS OF BREATH Allopurinol 300 mg 04/13/18 17:15 04/19/18 08:34 Zyloprim PO 300 mg DAILY SHERLY Administration Diphenhydramine HCl 25 mg 04/12/18 14:17 04/15/18 11:49 Benadryl PO 25 mg Q4H PRN Administration rash/itch Diphenhydramine HCl 25 mg 04/12/18 16:29 04/15/18 17:19 Benadryl PO 25 mg Q4H PRN Administration PRIOR TO BLOOD TRANSFUSIONS Eszopiclone 3 mg 04/12/18 21:00 04/18/18 20:08 Lunesta PO 3 mg HS PRN Administration insomnia Fluticasone Propionate 2 spray 04/13/18 09:00 04/19/18 08:35 Flonase Nasal [place] NASAL 2 spray DAILY SHERLY Administration Furosemide 40 mg 04/17/18 09:00 04/19/18 08:35 Lasix Inj IV.PUSH Not Given BID@0900,1800 [facility] Heparin Sodium (Porcine) 250 unit 04/13/18 06:11 04/18/18 08:42 Heparin Central Flush IV.FLUSH 250 unit PRN PRN Administration Flush Infusapot Insulin Aspart 0 unit 04/13/18 17:00 04/19/18 07:42 Novolog Insulin Suppl Scale Inj SQ Not Given ACHS [facility] Protocol Nicotine 1 patch 04/13/18 13:30 04/19/18 08:36 Habitrol 14 Mg Patch.24 Hr T-DERMAL 1 patch DAILY SHERLY Administration Patch Removal 1 each 04/14/18 09:00 04/19/18 08:34 Remove Old Patch T-DERMAL 1 each DAILY SHERLY Administration Prednisone 40 mg 04/19/18 09:00 04/19/18 08:35 Deltasone PO 40 mg DAILY SHERLY Administration Sodium Chloride 2 ml 04/12/18 12:05 04/16/18 09:30 Ns Flush IV.FLUSH 2 ml PRN PRN Administration FLUSH AFTER USING IV ACCESS Sodium Chloride 5 ml 04/13/18 06:11 04/14/18 08:43 Ns Flush IV.FLUSH 5 ml PRN PRN Administration Flush Infusaport Objective Remarks: GENERAL: Well-nourished, well-developed, middle-aged male patient. In no acute distress. SKIN: warm and dry. Port accessed right chest wall-dressing dry/intact. Petechiae rash throughout right axilla and chest wall & bilateral nasal bridge- color stages of healing. HEAD: Normocephalic. EYES: Mild scleral icterus. + injection left, + clear drainage bilaterally. PERRLA. MOUTH: [place], moist mucous membranes, scattered small white patches bilateral buccal. NECK: Supple, trachea midline. lymphadenopathy left supraclavicular. CARDIOVASCULAR: Regular rate and rhythm without murmurs. RESPIRATORY: Posterior breath sounds clear, equal bilaterally. No accessory muscle use. GASTROINTESTINAL: Abdomen non-tender with palpation, nondistended. EXTREMITIES: No cyanosis, no edema. MUSCULOSKELETAL: Adequate muscle tone. NEUROLOGICAL: No obvious focal deficit. Awake, alert, and oriented x3. PSYCHIATRIC: Appropriate mood and affect; insight and judgment normal. Assessment/Plan (1) Adverse reaction to drug Code(s): T50.905A - Adverse effect of unspecified drugs, medicaments and biological substances, initial encounter Status: Acute (2) Symptomatic anemia Code(s): D64.9 - Anemia, unspecified Status: Acute (3) Mantle cell lymphoma Code(s): C83.10 - Mantle cell lymphoma, unspecified site Status: Acute - Plan Assessment: 1. Adverse reaction to Rituxan. He developed tachycardia, tachypnea, rigors, hypertension and hypoxia about an hour into the Rituxan infusion. He was given hydrocortisone and Demerol and his symptoms Resolved. He will continue Solu-Medrol until completion of Rituxan. Rechallenge with Rituxan on 04/14/2018, tolerated well. --04/19/18: Will discuss future treatment options with oncologist as an outpatient. 2. Mantle cell lymphoma with leukemic phase. He presented with constitutional symptom and noted to have diffuse adenopathy as he presented with white blood cell count more than 40,000. A bone marrow biopsy, and biopsy of left axillary lymph node showed mantle cell lymphoma. Peripheral smear showed scattered large cell, but that was not seen in the lymph node biopsy or bone marrow. He completed first cycle of bendamustine last week. He was given Rituxan as an outpatient, but developed adverse reaction as above. He was rechallenged with Rituxan on 04/14/2018 and tolerated it well. --04/16/18: Patient with questions regarding disease and disease progression. --04/17/18: CTA completed yesterday, for tachypnea & shortness of breath. It was negative for PE, however did show worsening extensive progressive bulky adenopathy identified both within the mediastinum as well as the bilateral axilla. Progressive nodular density involving the subcutaneous fatty tissues throughout the thorax concerning for additional sites of metastatic disease and new areas of groundglass opacity with adjacent interstitial thickening within the right and left upper lobes which may reflect lymphangitic spread of disease versus new infection. There is a new small left-sided pleural effusion. Steroids have been started. Unknown whether this is true disease progression or just inflammatory changes related to chemotherapy. 04/19/18: --Symptoms have improved. --continues on oral prednisone. --Will taper prednisone upon discharge. 3. Pancytopenia. Neutropenic precautions are in place. Status post 1 unit platelets and 2 units PRBCs on 04/15/2018. --04/19/18: H&H continues to stabilize today. 4. Edema. He developed lower extremity edema and scrotal edema. His recent echocardiogram showed ejection fraction of 55%. Continues on diuretics. --04/19/18: Improved with sequential stockings. Pt to continue to wear support hose upon discharge. 6. Hyperuricemia. Uric acid back to normal. --Continue him on allopurinol. 7. Mild renal insufficiency. His kidney function has improved. --Kidney function continues to improve. We will continue to monitor. Plan: 1. Pt is stable for discharge from an oncology perspective. 2. He will follow-up with lab work next Wednesday at [facility] and an appointment with Dr. Shell on Wednesday. 3. Rx bacitracin/polymyxin drops to each eye q 4 hours for conjunctivitis symptoms. 4. Patient to use magic mouthwash prn for sore throat or thrush. He is educated on notifying our office for increased sore throat or mouth pain. 5. Recommend steroid taper. Rx given and pt aware. 6. Continue wearing sequential stockings as needed for edema. - Attending Statement The exam, history, and the medical decision-making described in the above note were completed with the assistance of the mid-level provider. I reviewed and agree with the findings presented. I attest that I had a [id number] encounter with the patient on the same day, and personally performed and documented my assessment and findings in the medical record. Patient is feeling better today. The lower extremity edema and scrotal edema continued to improve. His blood count stabilizing. Will taper the prednisone. Patient can be discharged from oncology standpoint. He can follow-up in clinic next week. (1) Adverse reaction to drug Qualifiers: Encounter type: initial encounter Qualified Code(s): T50.905A - Adverse effect of unspecified drugs, medicaments and biological substances, initial encounter
[2018-04-19] MEDS ORDERED: Nystatin/Diphenhydramine/Lidocaine Mouthwash (Adult) 120 ML Botttle SWISH-SWAL SCH (13:00)
[2018-04-19] MEDS: Nystatin/Diphenhydramine/Lidocaine Mouthwash (Adult) 120 ML Botttle SWISH-SWAL SCH ×2 (14:39→17:23)
[2018-04-19] MEDS: BACITRACIN EACH EYE SCH ×2 (15:20→17:20)
[2018-04-19] MEDS: [UNRECOGNIZED DRUG - OTHER] EACH EYE SCH ×2 (15:20→17:20)
[2018-04-19 17:26] VITALS: BP 114/70; PULSE 109; RESP 20; TEMP 98.5; O2SAT 93
--- NOTE | 2018-04-19 17:26 | P.DS ---
Date of admission: 04/12/18 13:33 Primary care physician: UNKNOWN Attending physician on discharge: Augustin Fleming Anticipated date of discharge: 04/19/18 Brief History from admission: Patient is 57 yo male recently admitted to [place] in March with fatique and leukocytosis of 40k. He underwent evaluation with CT imaging of chest/abdomen/pelvis, bone marrow bx , and axillary lymph node biopsy. He was seen by Dr Shell oncology. His w/up was consistent with Mantle cell lymphoma. He was discharged on 03/28. I am told he had blood transfusion yesterday for hgb 6 and today began his first dose of Rituximab. Pt says very soon after infusion he began with sob, lightheadedness, rash on upper back and chest. His blood pressure was low and given steroids in clinic. He was sent to ED for anaphylaxis and given iv solumedrol/ benadryl/pepcid. Hgb still 6 and blood ordered. Pt hypoxic and on nrb mask. Feels better and rash improving. Oncology called and admission requested. PMH: Mantle cell lymphoma hx dm before weight loss left elbow surgery port placement SH: occasional etoh tobacco x 25 yrs. max 2ppd now 10cig/day FH noncontributory Meds: lasix 20mg daily kcl 10meq daily lunesta 3mg daily norco 5 q6h prn prn phenergan and zofran DS: Diagnosis - Discharge Diagnosis (1) Anaphylactic reaction (2) Mantle cell lymphoma Status: Acute DS: Medications - Discharge Medications Prescriptions: bacitracin-polymyxin B 1 applicatio EACH EYE Q4HR 7 Days #1 g albuterol sulfate 1.25 mg NEB Q6HR NEB PRN 30 Days ml PRN Reason: Shortness Of Breath furosemide [Lasix] 40 mg PO BID #30 tab ipratropium bromide 0.5 mg INHALATION Q6H PRN 30 Days ml PRN Reason: wheezing/sob potassium chloride 20 meq PO DAILY #20 tab prednisone 40 mg PO DAILY 7 Days #14 tab DS: Summary Hospital Course: (1) Anaphylactic reaction Code(s): T78.2XXA - Anaphylactic shock, unspecified, initial encounter Plan: 1. Mantle cell lymphoma. 03/23 CT abdomen/pelvis: 1. Markedly splenomegaly. 2. Prominent abdominal adenopathy including prominent groin adenopathy greater on the right. 3. Low-density lesion in the liver is nonspecific and measures 2.5 cm. 03/23 CT chest 1. Prominent axillary and mediastinal adenopathy. Lymphoma/leukemia should be excluded. 2. No infiltrate or mass. 03/24. Bone marrow biopsy 03/25 Left axillary node biopsy with u/s 04/01 IR.....1.implanted central venous port catheter placement. An 8 [employer] port was placed. 04/16 CTA chest: 1. Significant worsening of the exam with extensive progressive bulky adenopathy identified both within the mediastinum as well as the bilateral axilla. There is progressive nodular density involving the subcutaneous fatty tissues throughout the thorax concerning for additional sites of metastatic disease. 2. New areas of groundglass opacity with adjacent interstitial thickening within the right and left upper lobes. This may reflect lymphangitic spread of disease versus new infection. There is a new small left-sided pleural effusion. 3. No evidence of PE. oncology rechallenged pt with rituximab. pt did well. 2 prbc transfusion and 1 plts per oncology 04/15 Pt persists with sob and some edema. CTA shows progression of bulky lymphadenopathy and possible new mets. also ground glass upper lobes porter. ?lymphangitic spread, ?edema, ?related to the allergic reaction to rituximab. ?infection. he described dysphagia on admission but apparently passed swallow eval. - Pt given IV lasix and PO prednisone with clinical improvement. - discharge to home - f/u with Oncology in 1 week - see orders 2. anaphylaxis to Rituximab - Pt sent to ED today for anaphylaxis to Rituximab. Rash on back/neck, sob/hypoxia, hypotension. Improved with steroids/benadryl 3. Anemia/thrombocytopenia -Severe anemia related to mantle cell - s/p 2 units of prbc 04/12 - s/p 2 blood and 1 plts on 04/15 - Time Spent with Patient Total time spent providing and/or coordinating discharge services: Greater than 30 minutes - Quality: VTE Deep Vein Thrombosis/Pulmonary Embolism Present on Admission: No Exam Vital signs: Vital Signs 04/18/18 17:32 04/18/18 20:00 04/19/18 00:00 Temperature 98.2 F 97.8 F Pulse Rate 114 H 125 H 106 H Respiratory Rate 18 18 20 Blood Pressure 138/79 144/84 H Pulse Oximetry 93 L 04/19/18 00:21 04/19/18 04:00 04/19/18 08:00 Temperature 97.5 F L 98.3 F Pulse Rate 116 H 93 H 109 H Respiratory Rate 18 18 Blood Pressure 120/73 123/71 Pulse Oximetry 94 L 95 04/19/18 08:45 04/19/18 12:00 04/19/18 16:00 Temperature 99 F 98.5 F Pulse Rate 106 H 113 H 109 H Respiratory Rate 24 18 20 Blood Pressure 108/63 114/70 Pulse Oximetry 93 L Intake & Output 04/18/18 04/19/18 04/19/18 18:59 06:59 18:59 Intake Total 2039 Output Total 1350 / 1350 Balance 690 / 690 - - Weight 98.1 kg Intake: Oral 2039 Output: Urine 1350 / 1350 Stool Other: # Voids 3 Date of Last Bowel Movement 04/18/18 04/18/18 04/19/18 # Bowel Movements 2 Results Procedures completed during hospitalization: n/a Labs on day of discharge: Labs from last 24 hours 04/19/18 04/19/18 04/19/18 12:44 07:36 04:30 WBC RBC Hgb Hct MCV MCH MCHC RDW Plt Count MPV Prelim Diff (Auto) WBC Differential Lymphocytes % (Manual) Abs Neuts (Manual) Differential Comment Platelet Estimate Platelet Morphology Sodium 141 Potassium 4.0 Chloride 99 Carbon Dioxide 25.5 Anion Gap 17 H BUN 31 H Creatinine 0.99 Estimated GFR 78 L POC Glucose 153 H 137 H Random Glucose 153 H Calcium 9.2 Total Bilirubin 1.6 H AST 22 ALT 19 Alkaline Phosphatase 94 Total Protein 6.0 L Albumin 2.9 L 04/19/18 04/18/18 04:30 20:06 WBC 17.9 H RBC 2.69 L Hgb 8.8 L Hct 26.8 L MCV 99.7 MCH 32.9 MCHC 32.9 RDW 24.1 H Plt Count 45 L D MPV 7.6 Prelim Diff (Auto) Manual diff required WBC Differential Manual diff final Lymphocytes % (Manual) 100 H Abs Neuts (Manual) 0.0 L* Differential Comment . Platelet Estimate Low L Platelet Morphology Normal Sodium Potassium Chloride Carbon Dioxide Anion Gap BUN Creatinine Estimated GFR POC Glucose 193 H Random Glucose Calcium Total Bilirubin AST ALT Alkaline Phosphatase Total Protein Albumin - Impressions ITS Impressions Chest X-Ray 04/12/18 12:05 CONCLUSION: 1. New mild platelike atelectasis in the left lung base. 2. Otherwise, the rest the lungs are grossly clear. Scrotum Ultrasound 04/12/18 13:01 CONCLUSION: Diffuse scrotal edema with small left hydrocele. Normal testicular flow without mass Venous Doppler Study 04/12/18 13:02 CONCLUSION: No evidence of deep venous thrombosis. Chest CTA 04/16/18 00:00 CONCLUSION: 1. Significant worsening of the exam with extensive progressive bulky adenopathy identified both within the mediastinum as well as the bilateral axilla. There is progressive nodular density involving the subcutaneous fatty tissues throughout the thorax concerning for additional sites of metastatic disease. 2. New areas of groundglass opacity with adjacent interstitial thickening within the right and left upper lobes. This may reflect lymphangitic spread of disease versus new infection. There is a new small left-sided pleural effusion. 3. No evidence of PE. Discharge Plan - Discharge Disposition Patient Disposition: Discharge Home - Discharge Condition Condition: Stable - Discharge Order Discharge Orders: Discharge Order (Routine); Ordered 04/19/18 Ordered By: Augustin Fleming Oncology Clear for Discharge (Routine); Ordered 04/19/18 Ordered By: Yue Martinez - Physicians Team Primary Care Provider: UNKNOWN, Attending Provider: Rivas Eller Other Providers: Gabino Shell MD
== END 2018-04-19 19:29 | disposition home or self-care (01) ==
LOC: NEPE 11:52 → NEDA 13:33 → HCIN 15:02
PROVIDERS: ADMIT Hospitalist; ATTEND Hospitalist